=== PATIENT | male | born 1945 | race Caucasian/White ===

== ENCOUNTER 2017-01-12 04:34 | Inpatient (IN) | payer MEDICARE ==
[2017-01-12] VITALS (15 sets, daily range): BP systolic 107–153; BP diastolic 56–83; PULSE 55–95; RESP 12–22; O2SAT 92–100
[~2017-01-12] VITALS: Ht 177.8 cm; Wt 80.0 kg
[~2017-01-12 04:34] MED LIST: ACET325T51 PO; ALEN70TA2 PO; ASCO500C6 PO; ATOR20TA PO; CHOL10008 PO; CYAN500 PO; FERR325T39 PO; FOLI0.4T2 PO; MULT1CAP33 PO; PRD1T PO; WARF10TA4 PO
[2017-01-12 05:04] LABS: BASOPHILS % (AUTO) 0.2 % (0-3); EOSINOPHILS % (AUTO) 0.7 % (0-5); Mean Corpuscular Hemoglobin 31.7 pg (27.0-35.0); Mean Corpuscular Volume 90.3 fL (81-100); NEUTROPHILS % (AUTO) 93.3 % (40-74); Platelet Count 122 bil/L (150-400)
--- NOTE | 2017-01-12 05:04 | ED.REPORT ---
HPI-Abd Pain M 40 and Over Date of Service Jan 12, 2017 ED Provider: Victoriano Troncoso MD Pt is a 71 year old male who presents to the ED with complaints of abdominal pain, nausea, vomiting and dizziness that started earlier today. He reports that he is currently anticoagulated on Warfarin for a mechanical valve. Pt reports that his recently had influenza, but she was treated for it and healing completely. He states that he is mainly concerned about his dizziness, weakness and his fever. Nursing Notes Stated Complaint: ABDOMINAL CRAMPS/FEVER Chief Complaint: General Complaint Nursing Notes Reviewed: Yes Allergies: Coded Allergies: sulfamethoxazole (Verified Allergy, Mild, Rash, 10/05/13) trimethoprim (Verified Allergy, Mild, Rash, 10/05/13) Scheduled Alendronate Sodium (Fosamax) 70 Mg Tablet 70 MG PO WEEKLY Atorvastatin (Lipitor) 20 Mg Tablet 20 MG PO HS Cholecalciferol (Vitamin D3) (Vitamin D3) 1,000 Unit Tab.chew 2,000 UNIT PO BID Cyanocobalamin (Vitamin B12) 500 Mcg Tablet 1,000 MCG PO DAILY Ferrous Sulfate (Iron) 325 Mg Tablet 324 MG PO BID Multivitamin (Multivitamins) 1 Each Capsule 1 EACH PO DAILY PredniSONE (PredniSONE) 1 Mg Tab 2 MG PO DAILY Warfarin Sodium (Warfarin Sodium) 10 Mg Tablet 12.5 MG PO DAILY 12.5 MG ON SAT AND SATURDAY Warfarin Sodium (Warfarin Sodium) 10 Mg Tablet 10 MG PO DAILY ON SAT, , , SAT, SUN Scheduled PRN Acetaminophen (Acetaminophen) 325 Mg Tablet 1,000 MG PO QID PRN PRN For Pain Ascorbic Acid (Vitamin C) 500 Mg Capsule.er 500 MG PO BID PRN PRN supplement Folic Acid (Folic Acid) 0.4 Mg Tablet 0.4 MG PO DAILY PRN PRN SUPPLEMENT General Time Seen by MD: 04:55 Chief Complaint Abdominal pain Hx Obtained From: Patient Arrived By: Walk-in Sudden in Onset?: Yes Onset Occurred: 5 - 8 hours ago Symptom Duration: Since onset Location: : Diffuse Quality: Painful Severity: Current: Mild Severity: Maximum: Mild Similar Sx Previous: Yes Past Medical History Past Medical History 1. Sclerosing mesenteritis diagnosed 2009. 2. 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 3. 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 4. 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 5. Degenerative disk disease. 6. Atrial fibrillation status post ablation 2008. 7. TIA in 2007. 8. Vestibular ocular reflex disorder. 9. Minor coronary artery disease by catheterization in 2007. 10. History of anemia. 11. Raynaud's. Past Surgical History PAST SURGICAL HISTORY: 1. [place] Rupert aortic valve replacement, 2007. 2. Subtotal gastrectomy with Fe-en-Y gastrojejunostomy, 2010. 3. Cardiac ablation 2008. 4. Lumbar micro laminectomy 1999. 5. Vasectomy. 6. Laparoscopy. Reports: Tonsillectomy Smoking History Unknown if Ever Smoker Social History Alcohol Use: Denies alcohol use Other Social History: Good social support, Ambulatory Status Independent Review of Systems Constitutional: Reports: Fever, Malaise, Weakness - generalized, Denies: Chills Respiratory: Denies: Non-productive cough, Shortness of breath, Wheezing Cardiovascular: Denies: Chest pain GI: Reports: Abdominal pain, Nausea, Vomiting, Denies: Constipation, Diarrhea Male: Denies Dysuria, Denies Flank pain, Denies Urinary frequency, Denies Urinary urgency Musculoskeletal: Denies: Back pain, Extremity pain Complete sys rev & neg: except as marked. Physical Exam Initial Vital Signs Vital Signs (First) Date Time Temp Pulse Resp B/P Pulse Ox O2 Delivery O2 Flow Rate FiO2 01/12/17 04:45 40.0 95 17 150/61 98 Room Air Initial VS: Reviewed, Vital signs abnormal Head / Eyes: Atraumatic, Normocephalic, PERRL ENT: Mucous membranes moist, Conjunctiva normal, No scleral icterus Neck: Supple, Non-tender, Full range of motion Skin: Warm, Dry, No cyanosis Neurologic: Alert, Oriented, Nonfocal General/Constitutional: Awake, Alert Generalized weakness Respiratory / Chest: Atraumatic, Breath sounds NL, No respiratory distress Cardiovascular: Regular rhythm, Heart sounds NL, No gallop, No murmurs Artificial valve heard Abdomen: Atraumatic, Soft, Non-tender, No guarding, No rebound Back: Atraumatic, Inspection NL Interpretation & Diagnostics Lab Results Interpretation Result Diagram: 01/12/1744901/12/17449 Test 01/12/17 04:50 White Blood Count 6.1th/mm3 (3.8-10.1) Red Blood Count 4.13mil/mm3 (4.40-5.80) Hemoglobin 13.1g/dL (13.8-17.2) Hematocrit 37.3% (41.0-50.0) Mean Corpuscular Volume 90.3fL (81-100) Mean Corpuscular Hemoglobin 31.7pg (27.0-35.0) Mean Corpuscular Hemoglobin Concent 35.1% (32.0-37.0) Red Cell Distribution Width 13.1% (12.3-15.4) Platelet Count 122bil/L (150-400) Neutrophils (%) (Auto) 93.3% (40-74) Lymphocytes (%) (Auto) 4.6% (14-46) Monocytes (%) (Auto) 1.0% (4-12) Eosinophils (%) (Auto) 0.7% (0-5) Basophils (%) (Auto) 0.2% (0-3) Prothrombin Time 25.7sec (8.1-12.5) Prothromb Time International Ratio 2.36ratio Sodium Level 133mEq/L (134-144) Potassium Level 4.1mEq/L (3.5-5.2) Chloride Level 96mEq/L (97-108) Carbon Dioxide Level 24mmol/L (18-29) Blood Urea Nitrogen 14mg/dL (8-27) Creatinine 0.67mg/dL (0.76-1.27) Estimat Glomerular Filtration Rate 124mL/min (>59) Glucose Level 127mg/dL (60-99) Lactic Acid Level 3.3mmol/L (0.4-2.0) Calcium Level 8.6mg/dL (8.5-10.1) Magnesium Level 1.6mg/dL (1.6-2.6) Total Bilirubin 1.8mg/dL (0.0-1.2) Aspartate Amino Transf (AST/SGOT) 330U/L (0-50) Alanine Aminotransferase (ALT/SGPT) 224U/L (0-44) Alkaline Phosphatase 100U/L (25-160) Troponin T 0.010ug/L (0.0-0.011) Pro-B-Type Natriuretic Peptide 370.0pg/mL (0-376) Total Protein 6.3g/dL (6.4-8.4) Albumin 4.2g/dL (3.4-5.0) ECG Interpretation ECG Interpretation: SR - 91 Probable left atrial enlargement LAFB Time: 04:53 Interpreted by: ED physician Re-Eval/Medical Decision Med Decision/Clinical Course 71-year-old male with symptoms concerning for sepsis, source uncertain by history. Workup was initiated and his care will be turned over at change of shift to Dr. Lim. Source of Hx: Old records Counseled Regarding: Diagnosis, Lab results, Need for follow-up, Need for admission Discharge & Departure Primary Impression: Fever Fever type: unspecified Qualified Code: R50.9 - Fever, unspecified Disposition: ADMITTED TO HOSPITAL Vital Signs - All Vital Signs Date Time Temp Pulse Resp B/P Pulse Ox O2 Delivery O2 Flow Rate FiO2 01/12/17 04:45 40.0 95 17 150/61 98 Room Air )( All Prior VS Reviewed: Yes Condition: Stable Referrals: Darell Hendrickson MD (PCP) Maximinoiberinn Attestation Portions of this note were transcribed by Rose Goodrich. I, Dr. Troncoso personally performed the history, physical exam and medical decision-making; I reviewed and confirmed the accuracy of the information in the transcribed note. Signed by: Nora Berry, 01/11/2017 [Time] copies to: Darell Hendrickson MD, Howard L MD Jan 12, 2017 05:04 ESPERANZA GOODRICH Jan 12, 2017 05:10
[2017-01-12] MEDS ORDERED: 0.9% Sodium Chloride 1,000 ML IV ONE ×2 (05:10→06:30)
[2017-01-12 05:22] LABS: INR 2.36 ratio
[2017-01-12 05:32] LABS: TROPONIN T 0.01 ug/L (0.0-0.011)
[2017-01-12 05:44] LABS: Magnesium 1.6 mg/dL (1.6-2.6)
[2017-01-12] MEDS ORDERED: Ondansetron 2 mg/mL 2 mL Inj IVPUSH PRN ×2 (06:30→11:05)
[2017-01-12] MEDS ORDERED: predniSONE 1 mg Tablet PO ONE (07:45)
[2017-01-12 07:47] LABS: APPEARANCE,URINE CLEAR (CLEAR,HAZY); COLOR,URINE YELLOW (YELLOW); OCCULT BLOOD,URINE TRACE (NEGATIVE); PH,URINE 7.5 (5.0-8.0); UROBILINOGEN,URINE NORMAL (NORMAL)
--- NOTE | 2017-01-12 08:56 | DRSVH ---
PROCEDURE: X-RAY CHEST ONE VIEW, PORTABLE ([id number]) INDICATIONS: fever TECHNIQUE: One view of the chest was acquired. COMPARISON: [facility], CR, XR CHEST 1VW (PORTABLE), 11/11/2015, 22:30. [facility], CR, CHEST 2VW, 10/28/2014, 9:54. FINDINGS: Surgical changes and devices: Sternotomy wires, probable prior heart valve replacement. Lungs and pleura: No pleural effusions or pneumothorax. Lungs are abnormal with mild chronic inters titial prominence perhaps reflecting prior smoking. Mediastinum: Mediastinal contours appear normal. Heart size is normal. Bones and chest wall: No suspicious bony lesions. Overlying soft tissues appear unremarkable. IMPRESSION: No pneumonia found, stable mild interstitial prominence perhaps reflecting prior smoking history. Sternotomy wires, probable prior heart valve replacement. Source of current fever is not f ound. Dictated by: Harjeet Villanueva M.D. on 01/12/2017 at 8:54 Approved by: Harjeet Villanueva M.D. on 01/12/2017 at 8:55
[2017-01-12] MEDS: Vancomycin Dose per Pharmacist XX SCH (11:05)
[2017-01-12] MEDS ORDERED: Polyethylene Glycol (PEG) 17 Gm Powder PO PRN (11:05)
[2017-01-12] MEDS ORDERED: Alum-Mag Hydrox-Simeth 30 mL Suspension PO PRN (11:05)
[2017-01-12] MEDS ORDERED: Piperacillin-Tazo 3.375 Gm Inj 3.375 GM in Dextrose 5% Minibag Plus 50 ML IV SCH (11:05)
--- NOTE | 2017-01-12 11:21 | NUR ---
Admit Pt admitted from ED to [facility] rm 3004, report received from Annika Hurtado RN. Pt A/O x3, pleasant able to ambulate independently with steady gait. Denies pain or discomfort, SOB or CP. Pt left floor for STAT CT ABD/Pelvis as this time.
--- NOTE | 2017-01-12 11:35 | PCM.CONPHA ---
Subjective History of Present Illness Patient is an 71 y.o. male receiving vancomycin for sepsis. Concurrent abx include: ZOSYN. WBC count is 6.1 and the patient is febrile. Patient is 73 kg, 70 inches tall with a SCr of 0.67 mg/dL-- estimated CrCl of 100 mL/min. Based on patient parameters vancomycin will be dosed at 1250mg q12 h with a target trough of 15-20 /mL. Trough will be drawn prior to the 4th dose on 01/13 @ 2200. Pharmacy will follow daily and adjust as appropriate. Thank you for the consult in the care of this patient. RTM PharmD Objective Vital Signs Date Time Temp Pulse Resp B/P Pulse Ox O2 Delivery O2 Flow Rate FiO2 01/12/17 10:53 74 01/12/17 10:30 36.4 75 18 130/70 98 Room Air 01/12/17 09:46 91 20 116/57 01/12/17 06:38 37.7 87 22 125/56 96 Room Air 01/12/17 04:45 40.0 95 17 150/61 98 Room Air Weight (Kilograms): 73.000 Height (Feet): 5 Height (Inches): 10.00 Test 01/12/17 04:50 01/12/17 06:58 01/12/17 11:14 White Blood Count 6.1th/mm3 (3.8-10.1) Red Blood Count 4.13mil/mm3 (4.40-5.80) Hemoglobin 13.1g/dL (13.8-17.2) Hematocrit 37.3% (41.0-50.0) Mean Corpuscular Volume 90.3fL (81-100) Mean Corpuscular Hemoglobin 31.7pg (27.0-35.0) Mean Corpuscular Hemoglobin Concent 35.1% (32.0-37.0) Red Cell Distribution Width 13.1% (12.3-15.4) Platelet Count 122bil/L (150-400) Neutrophils (%) (Auto) 93.3% (40-74) Lymphocytes (%) (Auto) 4.6% (14-46) Monocytes (%) (Auto) 1.0% (4-12) Eosinophils (%) (Auto) 0.7% (0-5) Basophils (%) (Auto) 0.2% (0-3) Prothrombin Time 25.7sec (8.1-12.5) Prothromb Time International Ratio 2.36ratio Sodium Level 133mEq/L (134-144) Potassium Level 4.1mEq/L (3.5-5.2) Chloride Level 96mEq/L (97-108) Carbon Dioxide Level 24mmol/L (18-29) Blood Urea Nitrogen 14mg/dL (8-27) Creatinine 0.67mg/dL (0.76-1.27) Estimat Glomerular Filtration Rate 124mL/min (>59) Glucose Level 127mg/dL (60-99) Lactic Acid Level 3.3mmol/L (0.4-2.0) Calcium Level 8.6mg/dL (8.5-10.1) Magnesium Level 1.6mg/dL (1.6-2.6) Total Bilirubin 1.8mg/dL (0.0-1.2) Aspartate Amino Transf (AST/SGOT) 330U/L (0-50) Alanine Aminotransferase (ALT/SGPT) 224U/L (0-44) Alkaline Phosphatase 100U/L (25-160) Troponin T 0.010ug/L (0.0-0.011) Pro-B-Type Natriuretic Peptide 370.0pg/mL (0-376) Total Protein 6.3g/dL (6.4-8.4) Albumin 4.2g/dL (3.4-5.0) Urine Color Yellow (YELLOW) Urine Appearance Clear (CLEAR,HAZY) Urine pH 7.5 (5.0-8.0) Urine Specific [place] 1.012 (1.003-1.035) Urine Protein Negativemg/dL (NEG,TRACE) Urine Glucose (UA) Negativemg/dL (NEGATIVE) Urine Ketones Negativemg/dL (NEGATIVE) Urine Occult Blood Trace (NEGATIVE) Urine Nitrite Negative (NEGATIVE) Urine Bilirubin Negative (NEGATIVE) Urine Urobilinogen Normalmg/dL (NORMAL) Urine Leukocyte Esterase Negative (NEGATIVE) Urine RBC 3-10/hpf (0-2) Urine WBC 0-5/hpf (0-5) Urine Epithelial Cells Few/hpf (NONE-MOD) Urine Crystals None seen (NONE SEEN) Urine Bacteria None/hpf (NONE-FEW) Urine Hyaline Casts None/lpf (NONE) Urine Granular Casts None seen (NONE SEEN) Urine Waxy Casts None seen (NONE SEEN) Urine Red Blood Cell Casts None seen (NONE SEEN) Urine White Blood Cell Casts None seen (NONE SEEN) Urine Mucus None seen (None Seen) Urine Trichomonas None seen (NONE SEEN) Urine Yeast None (NONE SEEN) Urinalysis Comment None Urine Culture Reflexed Not indicated Ziyad Saunders Jan 12, 2017 11:35
--- NOTE | 2017-01-12 11:57 | DRSVH ---
PROCEDURE: CT ABDOMEN AND PELVIS WITH CONTRAST ([id number]) INDICATIONS: Abdominal Pain, Fever TECHNIQUE: After the administration of oral and intravenous contrast, 5 mm thick sections acquired from the diap hragms to the symphysis. 5 mm thick coronal and sagittal reformats were performed. For radiation do se reduction, the following was used: automated exposure control, adjustment of mA and/or kV accordi ng to patient size. COMPARISON: None. FINDINGS: Image quality: Excellent. ABDOMEN: Lung bases: Lung bases are clear. Heart size is normal. Solid organs: Liver and spleen are normal in size and enhancement. Gallbladder appears abnormal wit h wall thickening best seen at the fundus measuring up to 1.7 cm. A component of this may be free fl uid immediately adjacent, and ultrasound is scheduled. Biliary system is non-dilated. Pancreas enha nces normally. No adrenal nodules. Kidneys are normal in size and enhancement, without hydronephros is. Peritoneum and bowel: Stomach, small bowel, and colon loops are normal in caliber and wall thickness . No free fluid or air. There is colonic obstipation bilaterally. This extends into the pelvis. Nodes and vessels: No retroperitoneal or mesenteric adenopathy. Aorta and inferior vena cava are no rmal in caliber. Miscellaneous: No ventral hernias. PELVIS: Genitourinary: Bladder wall thickness is normal. Miscellaneous: No inguinal hernias or adenopathy. Bones: No suspicious bony lesions. No vertebral body compression fractures. IMPRESSION: Abnormal gallbladder wall thickening, measuring up to 1.7 cm In thickness at the anterior gallbladder fundus area, but please note that ultrasound provides more a ccurate assessment and can discriminate between gallbladder wall thickening and superimposed pericoli cystic free fluid. Please correlate for signs and symptoms of acute cholecystitis. Gallbladder ultr asound is scheduled. Dictated by: Harjeet Villanueva M.D. on 01/12/2017 at 11:54 Approved by: Harjeet Villanueva M.D. on 01/12/2017 at 11:56
[2017-01-12] MEDS: 0.9% Sodium Chloride 1,000 ML IV SCH ×2 (12:08→21:20)
[2017-01-12] MEDS ORDERED: Phytonadione (Adult) 5 MG in Dextrose 5%-Pha MIX 50 ML IV ONE (12:40)
--- NOTE | 2017-01-12 12:40 | PCM.HPMED ---
Subjective Date of Service Jan 12, 2017 Primary Provider: Admitting Physician: Zak Arango MD Primary Care Physician: Darell Hendrickson MD Attending Physician: Zak Arango MD Admit Status: From the Emergency Department, Admit to [place] Team Chief Complaint: Fever, Chills, Abdominal Pain History of Present Illness: Patient is a 71 year old male with a past medical history of Coronary Artery Disease, Aortic Stenosis, Sclerosing Mesenteritis, Atrial Fibrillation, TIA, and hx of Gastric Perforation. He presents to the ER at [facility] complaining of fever, chills, and abdominal pain. Pt states his symptoms began at approximately 3:30 AM this morning, when he woke up with significant chills and fever. He states he has also been having some abdominal pain as well as nausea and vomiting last night. Pt states the pain seems to be generalized. He denies any radiation of this pain. At present, pt states the pain has subsided. In the ER pt was found to have a significantly elevated temperature. A source for his fever was not found in the ER and he was admitted for further evaluation to hospital. No other complaints or concerns at this time. Review of Systems: All systems reviewed and are negative except for what has already been mentioned in the HPI. Allergies Coded Allergies: sulfamethoxazole (Verified Allergy, Mild, Rash, 10/05/13) trimethoprim (Verified Allergy, Mild, Rash, 10/05/13) Home Medications Pts home medications have not yet been verified. PMH 1. Coronary Artery Disease 2. Atrial Fibrillation status post ablation 3. TIA 4. Aortic Stenosis status post AVR 5. Sclerosing Mesenteritis 6. Hx of Gastric Perforation Surgical History 1. Subtotal Gastrectomy 2. Cardiac Ablation 3. Aortic Valve Replacement Family History Mother - of Breast Cancer at age 73 Father - of MS at age 72 Social History Hx Alcohol Use: No Hx Substance Use: No Hx Tobacco Use: No Smoking Status: Never Smoker Living Arrangement: with Family Exam Vital Signs Vital Sign - Last Date Time Temp Pulse Resp B/P Pulse Ox O2 Delivery O2 Flow Rate FiO2 01/12/17 10:53 74 01/12/17 10:30 36.4 18 130/70 98 Room Air Intake and Output 01/11/17 01/11/17 01/12/17 Cumulative From/Thru 15:00 23:00 07:00 01/12/17 05:19 - 01/12/17 05:19 Intake Total 1000 ml 1000 ml Balance 1000 ml 1000 ml Intake IV Total 1000 ml 1000 ml Exam GENERAL: NAD, Pt laying in bed comfortably HEENT: AT/NC, PERRLA, EOMI, Mucus Membranes are moist CARDIAC: RRR; No M/R/G PULM: CTAB; No wheezes or rhonchi bilaterally ABD: Soft, Mildly TTP over RUQ, Nondistended, Positive bowel sounds in all quadrants, No Hepatosplenomegaly appreciated EXT: No C/C/E; No calf tenderness bilaterally SKIN: Warm, Dry, [place], and Intact NEURO: Alert and oriented x3; Following all commands PSYCH: Normal mood and affect Lab and Diagnostics Result Diagram: 01/12/1744901/12/17449 Assessment & Plan Patient is a 71 year old male who is admitted to hospital for an acute fever and abdominal pain suspicious for Acute Cholecystitis. 1. Fever - Etiology unclear - Blood cultures x2 - Start empiric antibiotics with IV Vancomycin and IV Zosyn now - Check Procalcitonin now - Check CBC with diff and BMP in AM - CXR is clear, UA is within normal range, and rapid flu test was negative 2. Abdominal Pain, RUQ - I suspect pt may have Acute Cholecystitis - Will order a CT of the abdomen and pelvis with contrast now given pts acute fever and abdominal pain, as this was not done in ER for some unknown reason - I will also order a RUQ US now - Morphine 1-2 mg IV q 4 hours PRN pain 3. Transaminitis, Acute - Will order an acute hepatitis panel now - Possibly related to #2 - Will consult GI now for assistance 4. Hx of Mechanical Aortic Valve Replacement - Pt is presently on chronic anticoagulation with Warfarin and his INR is therapeutic - Stop Warfarin now - Will give 2 units FFP now to reverse anticoagulation as pt may need surgery given suspicion of cholecystitis - Will give 5 mg IV Vitamin K now also 5. Sclerosing Mesenteritis - Pt is presently on low dose chronic Prednisone, will continue this while pt is in hospital 6. Hx of CAD - Hold home statin therapy for now, and restart this medication in AM 7. Disposition - Anticipate discharge to home within the next 2 days - Pt admitted under inpatient status as his expected length of stay in hospital is greater than 2 midnights DNR, per discussion with patient at bedside and review of his POLST form Zak Arango MD Jan 12, 2017 12:40
[2017-01-12] MEDS: Vancomycin Inj 1,250 MG in 0.9% Sodium Chloride 250 ML IV SCH ×2 (12:53→22:43)
--- NOTE | 2017-01-12 13:03 | CONS ---
[address] [address] CONSULTATION REPORT PATIENT: JIMY BAUMANN : 1945 MR#: [id number] ADMIT: 01/12/2017 JOB ID: [id number] DATE OF SERVICE: 01/12/2017 It was a pleasure seeing the patient at [facility] GI service for abdominal pain. This is a 71-year-old gentleman with multiple medical issues and surgeries including sclerosing mesenteritis on prednisone. He was on azathioprine as well. He had a history of gastric perforation with peritonitis status post subtotal colectomy, aortic stenosis status post aortic valve replacement on Coumadin. History of AFib status post ablation. TIAs and underlying coronary disease who also has a [place]pert's aortic valve. He comes in with 2-day history of abdominal pain, nausea, vomiting. The abdominal pain came and gone; however, he started having the shakes and he started having the chills. Because of this, he thought he was going to pass out. He was constantly shaking. He also noted some fevers as well. He came to the ED and when he got to the ED, they noticed that on exam, he was soft, nontender. No rebound. However, they noticed that his transaminases were elevated. Therefore they wanted the patient to be admitted for observation for possible flu. However, the primary care service saw the patient and thought he was septic, and did notice some tenderness. Based on the history they did a CT scan, which showed nondilated ducts but evidence of cholecystitis with pericholecystic fluid as well as a thickened gallbladder wall. He is currently having minimal pain. However, he still feels chills and is feeling better. His weakness is better. Dizziness is better. In terms of the rest of the review of systems, the denies any nausea, vomiting, no significant abdominal pain. No blood in the stools. Black stools. Diarrhea, constipation. No skin rash. PAST MEDICAL HISTORY: Sclerosing mesenteritis with history of immunosuppression who has been on azathioprine. However, only on prednisone at this point. Gastric perforation with peritonitis, status post subtotal gastrectomy, September 2011. Congenital aortic stenosis, status post [place] Rupert's valve replacement 2007. Degenerative joint disease. AFib status post ablation in 2008. TIA 2008. CAD. History of anemia. Raynaud, cardiac ablation, lumbar laminectomy, vasectomy, and history of laparoscopic, and tonsillectomy. Denies tobacco or alcohol. PHYSICAL EXAMINATION: Patient is alert, oriented, does appear comfortable. Temp 36.4, pulse 75, respiration 18, blood pressure 130/70. T-max is 40.0. Head and neck: No icterus. Lungs clear. Cardiovascular: Regular rate and rhythm. Normal S1, S2. Abdomen: Soft. Epigastric tenderness. Right upper quadrant tenderness. He actually has more significant epigastric tenderness. There is no guarding, rebound or firmness. Nondistended with slight decrease in bowel sounds. Extremities: No pitting edema of the ankles. Skin: Shows no jaundice. LABORATORY DATA: White count 6.1, hemoglobin 13.1, platelets 122,000. INR 2.36. Total bili 1.8, AST 330, ALT 224. Lactic acid 3.3, albumin 4.2. BUN is 14, creatinine 0.67. CT scan that was done just now showed abnormal gallbladder wall thickening up to 1.7 cm with superimposed pericholecystic fluid. IMPRESSION: This is a gentleman who is on prednisone, as well as history of azathioprine, who comes in with nausea, vomiting, abdominal pain, with chills and shakes. His temp was 40.0. The CT scan revealed that he has cholecystitis. His clinical picture is consistent with sepsis or an infection. He is on antibiotics. He is currently on Zosyn and vancomycin. He is not tachycardic. His fever broke. No ductal dilation noted. I suspect that he has underlying cholecystitis requiring surgery which explains his abdominal pain, nausea, vomiting, shakes, chills as well as temp of 40. I spoke with the primary care doctor who agreed to obtain surgical consult. We will sign off from GI. [facility]
--- NOTE | 2017-01-12 13:36 | CONS ---
[address] [address] CONSULTATION REPORT PATIENT: JIMY BAUMANN : 1945 MR#: [id number] ADMIT: 01/12/2017 JOB ID: [id number] DATE OF SERVICE: CHIEF COMPLAINT: Abnormal gallbladder on CT. HISTORY OF PRESENT ILLNESS: Patient is a 71-year-old male who presented to the hospital early this morning due to epigastric discomfort, shakes, and fever. The patient reports that he was fine yesterday. He went to bed feeling hungry. He had some peanut butter. This is follow by about an hour worth of epigastric cramping and shakes. The patient has had a history of gastrectomy so he is not able to vomit. The patient is also anticoagulated on Coumadin due to a mechanical valve. Workup in the emergency department early this morning included a CT scan, which showed some thickening of the gallbladder wall. I was consulted by the hospitalist service for evaluation. The patient states that he has a history of gravel in his gallbladder. The patient also has a slightly elevated total bilirubin of 1.8 with an AST of 330 and ALT of 224. Patient's INR early this morning was 2.36. Currently, patient is in his bed and denies major abdominal cramping or epigastric pain or right upper quadrant pain at this time. PAST MEDICAL HISTORY: History of laparoscopy, history of subtotal gastrectomy in 2010 at [facility], aortic valve replacement, DJD, history of atrial fibrillation, TIA in 2007, cardiac ablation in 2008, vasectomy and lumbar surgery in 1999. 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 MEDICATIONS AT HOME: Include Fosamax, vitamins, iron, prednisone, and Coumadin. ALLERGY: 1. SULFA. 2. TRIMETHOPRIM. SOCIAL HISTORY: The patient is . He has a son and a daughter. He lives in [place]. FAMILY HISTORY: Noncontributory to the current clinical situation. REVIEW OF SYSTEMS: Positive for the epigastric discomfort and shakes and fever. PHYSICAL EXAMINATION: The patient is currently in the hospital bed in no acute distress. His BMI is 23.1. His temperature is 36.4, although at 4:00 in the morning, he had a temperature of 40. Blood pressure 130/70, pulse is 75, respirations 18. Head is normocephalic, atraumatic. There is no scleral icterus. Neck is supple. Heart is in regular rate. Lungs are clear. Abdomen is nondistended. There is an upper midline incision from his previous gastrectomy. There is only mild discomfort with palpation in the epigastric location. There is no obvious right upper quadrant tenderness and the lower quadrants are completely soft and benign. Extremities show no clubbing, no cyanosis. Neurologically, patient is awake and alert and answers appropriately. LABORATORY EXAMINATION: This morning showed a white blood count of 6.1, hematocrit 37.3, platelet count is 122. Sodium is 133, potassium 4.1, total bilirubin 1.8. AST 330, ALT 224. His INR is 2.36. The CT scan report from early this morning shows abnormal gallbladder wall thickening with some pericholecystic fluid. ASSESSMENT: This is a 71-year-old male on Coumadin who had epigastric cramping and shakes and fever since last night. The patient has had a prior gastrectomy in 2010, with Fe-en-Y reconstruction. I will order a lipase at this time. An abdominal ultrasound is being performed currently. Depending on the findings of the ultrasound, I may or may not pursue a HIDA scan. If the patient does require surgical intervention, his INR should be reversed with vitamin K and FFP. The biliary anatomy was drawn on the chalkboard and explained to the patient and his friend in the room. I will follow up with the patient after the ultrasound examination. The patient is currently on IV antibiotics and should be continued on them. Addendum: pt was found to have positive blood cultures with gram neg rods. Therefore I recommend proceeding to cholecystectomy during this hospitalization. HOODD
--- NOTE | 2017-01-12 13:48 | DRSVH ---
PROCEDURE: US ABDOMEN, LIMITED ([id number]) INDICATIONS: Elevated Liver Enzymes; Fever TECHNIQUE: Real-time focused scanning was performed of the abdomen, with image documentation. COMPARISON: [facility], CT, CT ABD PELVIS W CON, 01/12/2017, 11:24. FINDINGS: Gallbladder wall is abnormally thickened measuring up to 5.4 mm. There is what appears to be a small amount of echogenic sludge in the dependent margin of the gallbladder lumen. The nearby c ommon duct is normal in caliber at 2 mm. IMPRESSION: Abnormal gallbladder wall thickening at 5.4 mm. Echogenic sludge within the gallbladder lumen. Dictated by: Harjeet Villanueva M.D. on 01/12/2017 at 13:46 Approved by: Harjeet Villanueva M.D. on 01/12/2017 at 13:47
[2017-01-12] MEDS ORDERED: Heparin Protocol Boluses IVPUSH PRN (15:20)
[2017-01-12] MEDS ORDERED: Heparin 25K Unit/500mL 0.45 NS 25,000 UNIT in IV Premix 1 EACH IV SCH (15:20)
[2017-01-12] MEDS ORDERED: Heparin Initial Bolus IVPUSH ONE (15:20)
--- NOTE | 2017-01-12 16:09 | NUR ---
took over care at 4pm
--- NOTE | 2017-01-12 16:30 | NUR ---
[facility] [place] signed
--- NOTE | 2017-01-12 16:34 | NUR ---
Vit K Med started, 50-60% infused when MD ordered to stop infusion. Received new order for Heparin bolus 5000 units and Heparin drip, paged for clarification on what heparin protocol from MD.
[2017-01-12] MEDS: Heparin 5,000 Unit/mL Inj SUBQ SCH (17:00)
[2017-01-12 17:36] LABS: INR 2.47 ratio
--- NOTE | 2017-01-12 18:24 | NUR ---
Temp/Chills Pt c/o of shaking, and not feeling very well, pt is febrile at 37.8. Received labs on blood cultures, 3 of 4 postitive for gram neg rods, paged at 1820. Addendum: 01/12/17 at 1852 by TAI ANGEL RN called back, aware of results and will contact surgeon. Addendum: 01/12/17 at 1924 by TAI ANGEL RN Received verbal order to infuse 2 units FFP STAT, NPO, as pt will have surgery in the morning.
[2017-01-12] MEDS ORDERED: Phytonadione (Adult) 2.5 MG in Dextrose 5%-Pha MIX 50 ML IV ONE (18:55)
[2017-01-12] MEDS: Piperacillin-Tazo 3.375 Gm Inj 3.375 GM in Dextrose 5% Minibag Plus 50 ML IV SCH (21:20)
[2017-01-12] MEDS ORDERED: 0.9% Sodium Chloride 250 ML ONE ×2 (21:22→22:22)
--- NOTE | 2017-01-12 22:00 | NUR ---
FFP and transfer from [facility] Report was received from [facility] and patient was brought to the [facility] by [facility] RN. FFP and NS were infusing at the time of transfer. The first unit of FFP completed infusing without complications and patients only complain is some LUQ ABD pain. Patient medicated with IV morphine and the patient reports feeling better. IV antibiotics started and completed without complication. Second unit of FFP started and completed without complication. Patient without signs of a transfusion reaction. Patient resting in bed without needs.
[2017-01-13] VITALS (17 sets, daily range): BP systolic 120–163; BP diastolic 63–82; PULSE 48–90; RESP 14–32; O2SAT 93–100
[2017-01-13] MEDS: Heparin 5,000 Unit/mL Inj SUBQ SCH ×3 (00:30→16:30)
[2017-01-13 03:12] LABS: BASOPHILS % (AUTO) 0.2 % (0-3); EOSINOPHILS % (AUTO) 0.8 % (0-5); MONOCYTES % (AUTO) 6.4 % (4-12); Mean Corpuscular Hemoglobin 31.3 pg (27.0-35.0); Mean Corpuscular Volume 96.7 fL (81-100); NEUTROPHILS % (AUTO) 89.2 % (40-74); Platelet Count 85 bil/L (150-400)
[2017-01-13 03:56] LABS: ERYTHROCYTE SEDIMENTATION RATE 9 mm/hr (0-30)
[2017-01-13] MEDS: 0.9% Sodium Chloride 1,000 ML IV SCH ×3 (05:12→20:33)
[2017-01-13] MEDS: Piperacillin-Tazo 3.375 Gm Inj 3.375 GM in Dextrose 5% Minibag Plus 50 ML IV SCH ×3 (05:13→22:32)
[2017-01-13] MEDS ORDERED: Neostigmine 1 mg/mL 5 mL Inj ONE (06:33)
[2017-01-13] MEDS ORDERED: fentaNYL-PF 50 mCg/mL 2 mL Inj ONE (06:33)
[2017-01-13] MEDS ORDERED: Propofol 10,000 mCg/mL 20 mL Inj ONE (06:33)
[2017-01-13] MEDS ORDERED: Dexamethasone 4 mg/mL Inj ONE (06:33)
[2017-01-13] MEDS ORDERED: Glycopyrrolate 0.2 mg/mL 5 mL Inj ONE (06:33)
[2017-01-13] MEDS ORDERED: Ondansetron 2 mg/mL 2 mL Inj ONE (06:33)
--- NOTE | 2017-01-13 07:11 | PCM.HPANE ---
Patient Data Surgeon Admitting Provider:Zak Arango MD Attending Provider:Zak Arango MD Primary Care Physician:Darell Hendrickson MD Other Provider: Reason for Visit Sepsis SEPSIS Ht/WT & BMI Height (Feet): 5 Height (Inches): 10.00 Weight (Kilograms): 72.800 Body Mass Index 23.04 Allergies Coded Allergies: sulfamethoxazole (Verified Allergy, Mild, Rash, 10/05/13) trimethoprim (Verified Allergy, Mild, Rash, 10/05/13) Past Anesthesia History Anesthesia History: Denies:: Anesthesia Reactions Diabetes History Hx Diabetes?: No MRSA MRSA: No Medications Reported Medications Warfarin Sodium 10 Mg Amvyfv69 Mg PO DAILY 30 Days Ref 0 ON MON, , , SAT, Sat11/12/15 Warfarin Sodium 10 Mg Xiaoju48.5 Mg PO DAILY 30 Days Ref 0 12.5 MG ON SAT AND Saturday11/12/15 Atorvastatin (Lipitor)20 Mg Jjzeqn04 Mg PO HS Ref 0 11/12/15 Alendronate Sodium (Fosamax)70 Mg Pttafl35 Mg PO WEEKLY 30 Days Ref 0 11/12/15 PredniSONE 1 Mg Tab2 Mg PO DAILY Ref 0 11/12/15 Multivitamin (Multivitamins)1 Each Capsule1 Each PO DAILY 11/12/15 Folic Acid 0.4 Mg Tablet0.4 Mg PO DAILY PRN SUPPLEMENT 11/12/15 Cyanocobalamin (Vitamin B12)500 Mcg Tablet1,000 Mcg PO DAILY 11/12/15 Cholecalciferol (Vitamin D3) (Vitamin D3)1,000 Unit Tab.chew2,000 Unit PO BID 11/12/15 Acetaminophen 325 Mg Tablet1,000 Mg PO QID PRN For Pain Ref 0 11/12/15 Ferrous Sulfate (Iron)325 Mg Cgbaqx086 Mg PO BID 11/12/15 Ascorbic Acid (Vitamin C)500 Mg Capsule.er500 Mg PO BID PRN supplement 11/12/15 History History of ENT Problems?: Yes HEENT History: Denies:: Cataracts Dysphagia Glaucoma Sinus Problem Other HEENT Pertinent History: Vestibular-ocular disorder, affects balance Hx of Heart Problems?: Yes Cardiovascular History: Positive for:: Cardiac Surgery Irregular Heartbeat (AFib) Denies:: Chest Pain Congestive Heart Failure Edema Heart Murmur Hypertension Pacemaker Thrombophlebitis Other Cardiac History: AVR 2007, ablation 2004 Hx of Respiratory Problem?: No Respiratory History: Positive for:: Chest Surgery (open heart) Pneumonia (Cannot remember date of hospital admin for PNA.) Denies:: Asthma COPD Dyspnea Emphysema Hemoptysis Tuberculosis Hx Neurologic Problems?: Yes Neurological History: Positive for:: Dizziness Headaches Denies:: Alzheimer's Disease CVA Dementia Parkinson's Disease Seizures Other Neurological Pertinent: Neck and lower back surgeries. L4-5 herniated disk removal. Vestibulo-ocluar reflex disorder, causes chronic dizziness and vertigo. TIA. Hx of GI Problems?: Yes Gastrointestinal History: Positive for:: Diverticulitis Gastrointestinal Bleeding Denies:: Gastroesphageal Reflux Heartburn Hepatitis Hiatal Hernia Rectal Bleeding Other GI Pertinent History: "stomach ulcer, mesenteric sclerosis, perforated stomach, stomach removed." Hx of Problems?: Yes Genitourinary History: Denies:: HX of Hemodialysis Kidney Stones Urinary Tract Infection HX of Peritoneal Dialysis: No Male Hx: Denies:: Prostate Problems Scrotal Mass Testicular Surgery Hx Musculoskeletal Problems?: Yes Musculoskeletal History: Positive for:: Back Injury (pre-back surgery) Denies:: Joint Replacement Musculoskeletal Trauma Hx of Psycho/Social Problems?: No Psycho Social History: Denies:: Anxiety Bipolar Disorder Hx Depression Suicide Attempt Hx Surgeries?: Yes (laminectomy, open heart with mechanical valve, gastrectomy, ) Hx Any Other Health Problems?: No Other History: Positive for:: Hospitalization Denies:: Cancer Endocrine Disease Thyroid Disease History Blood Transfusions: Positive for:: Accept Blood Products? Blood Transfusions Denies:: Blood Transfuse Reaction Hx Diabetes: No Hx Alcohol Use: NoHx Substance Use: No Smoking Status: Never Smoker Have You Smoked inLast 12 mo: No Stop/Bang Treated for Sleep Apnea?: No Do You Have a CPAP Machine?: No S-Snoring: Do You Snore Loudly: No T-Tired: feel tired, fatigued: No O-Obsered: Observed not breath: No P-Blood Pressure: treated: No B- Body Mass Index > 35 kg/m2: No A- Age over 50: Yes N- Neck Large Circumference: No G- Gender Male: Yes OLINDA Total Score: 1 OLINDA Risk Assessment: Low Risk, <3 Yes Risk Assessment Category Category 1A: Patient has history of documented sleep apnea, and HAS NOT received any narcotic, sedative or anesthesia administration during this stay. Category 1B: Patient has history of documented sleep apnea, and HAS received any narcotic , sedative or anesthesia administration during this stay Category 2: Patient has SUSPECTED Obstructive Sleep Apnea, and HAS received any narcotic , sedative or anesthesia administration during this stay. Category 3: Patient has SUSPECTED Obstructive Sleep Apnea and HAS NOT received narcotic, sedative or anesthesia administration during this stay. Category 4: Outpatient in Procedural Areas with known sleep apnea or who screen positive for High Risk via the STOP/BANG questionnaire. Exam Exam Vital Signs Vital Signs Date Time Temp Pulse Resp B/P Pulse Ox O2 Delivery O2 Flow Rate FiO2 01/13/17 06:56 64 01/13/17 04:48 36.6 74 17 141/69 93 Room Air 01/12/17 23:56 36.8 78 16 116/60 92 Room Air General Appearance: Alert, Oriented X3, Cooperative, No Acute Distress HEENT/AIRWAY: MP 2 Lungs: Clear to Auscultation, Normal Air Movement Heart: Exam Unremarkable, Regular Rate/Rhythm, No Murmurs/Rubs/Gallops Meds/Labs/Diagnostics Admission Meds Current Medications Prednisone (Deltasone) 2 mg ONCE ONCE PO Last administered on 01/12/17 08:28 ; Start 01/12/17 at 07:45; Stop 01/12/17 at 07:46; Status DC Warfarin Sodium 10 mg 10 mg ONCE ONCE PO Last administered on 01/12/17 08:28 ; Start 01/12/17 at 08:20; Stop 01/12/17 at 08:21; Status DC Sodium Chloride 1,000 ml @ 125 mls/hr Q8H IV Last administered on 01/13/17 05 :12; Start 01/12/17 at 11:03 Piperacillin Sod/ Tazobactam Sod 3.375 gm/Dextrose/ Water 50 ml @ 12.5 mls/hr Q8 IV Last administered on 01/12/17 14:08; Start 01/12/17 at 11:05; Stop 01/12 at 17:24; Status DC Vancomycin HCl 1250 mg/Sodium Chloride 250 ml @ 166.667 mls/hr Q12H IV Last administered on 01/12/17 22:43; Start 01/12/17 at 11:00 Phytonadione/ Dextrose/Water (Vitamin K (Adult)/D5W Pharmacy To Mix) 50.5 ml @ 101 mls/hr ONCE ONCE IV Last administered on 01/12/17 16:11; Start 01/12/17 at 12:40; Stop 01/12/17 at 13:09; Status DC Heparin Sodium (Porcine) 5000 unit 5,000 unit ONCE ONCE IVPUSH Last administered on 01/12/17 17:00; Start 01/12/17 at 15:20; Stop 01/12/17 at 15:21 ; Status DC Piperacillin Sod/ Tazobactam Sod 3.375 gm/Dextrose/ Water 50 ml @ 12.5 mls/hr Q8H IV Last administered on 01/13/17 05:13; Start 01/12/17 at 22:00 Phytonadione 2.5 mg/Dextrose/Water 50.25 ml @ 100.5 mls/ hr ONCE ONCE IV Last administered on 01/12/17 20:09; Start 01/12/17 at 18:55; Stop 01/12/17 at 19:24; Status DC Sodium Chloride 250 ml @ STK-MED ONCE .ROUTE Last administered on 01/12/17 21:45; Start 01/12/17 at 21:22; Stop 01/12/17 at 21:25; Status DC Sodium Chloride (Normal Saline) 250 ml @ ud STK-MED ONCE .ROUTE Last administered on 01/12/17 22:42; Start 01/12/17 at 22:22; Stop 01/12/17 at 22:24 ; Status DC Labs Test 01/12/17 04:50 01/12/17 06:58 01/12/17 13:35 01/12/17 16:40 Magnesium Level 1.6mg/dL (1.6-2.6) Troponin T 0.010ug/L (0.0-0.011) Pro-B-Type Natriuretic Peptide 370.0pg/mL (0-376) Lipase 28U/L (13-60) Urine Color Yellow (YELLOW) Urine Appearance Clear (CLEAR,HAZY) Urine pH 7.5 (5.0-8.0) Urine Specific [place] 1.012 (1.003-1.035) Urine Protein Negativemg/dL (NEG,TRACE) Urine Glucose (UA) Negativemg/dL (NEGATIVE) Urine Ketones Negativemg/dL (NEGATIVE) Urine Occult Blood Trace (NEGATIVE) Urine Nitrite Negative (NEGATIVE) Urine Bilirubin Negative (NEGATIVE) Urine Urobilinogen Normalmg/dL (NORMAL) Urine Leukocyte Esterase Negative (NEGATIVE) Urine RBC 3-10/hpf (0-2) Urine WBC 0-5/hpf (0-5) Urine Epithelial Cells Few/hpf (NONE-MOD) Urine Crystals None seen (NONE SEEN) Urine Bacteria None/hpf (NONE-FEW) Urine Hyaline Casts None/lpf (NONE) Urine Granular Casts None seen (NONE SEEN) Urine Waxy Casts None seen (NONE SEEN) Urine Red Blood Cell Casts None seen (NONE SEEN) Urine White Blood Cell Casts None seen (NONE SEEN) Urine Mucus None seen (None Seen) Urine Trichomonas None seen (NONE SEEN) Urine Yeast None (NONE SEEN) Urinalysis Comment None Urine Culture Reflexed Not indicated Prothrombin Time 26.9sec (8.1-12.5) Prothromb Time International Ratio 2.47ratio Activated Partial Thromboplast Time 33.4sec (22.8-33.0) Test 01/13/17 00:55 01/13/17 02:51 Lactic Acid Level 1.8mmol/L (0.4-2.0) White Blood Count 12.0th/mm3 (3.8-10.1) Red Blood Count 3.68mil/mm3 (4.40-5.80) Hemoglobin 11.5g/dL (13.8-17.2) Hematocrit 35.6% (41.0-50.0) Mean Corpuscular Volume 96.7fL (81-100) Mean Corpuscular Hemoglobin 31.3pg (27.0-35.0) Mean Corpuscular Hemoglobin Concent 32.3% (32.0-37.0) Red Cell Distribution Width 13.2% (12.3-15.4) Platelet Count 85bil/L (150-400) Neutrophils (%) (Auto) 89.2% (40-74) Lymphocytes (%) (Auto) 3.0% (14-46) Monocytes (%) (Auto) 6.4% (4-12) Eosinophils (%) (Auto) 0.8% (0-5) Basophils (%) (Auto) 0.2% (0-3) Erythrocyte Sedimentation Rate 9mm/hr (0-30) Sodium Level 138mEq/L (134-144) Potassium Level 4.6mEq/L (3.5-5.2) Chloride Level 103mEq/L (97-108) Carbon Dioxide Level 20mmol/L (18-29) Blood Urea Nitrogen 14mg/dL (8-27) Creatinine 0.68mg/dL (0.76-1.27) Estimat Glomerular Filtration Rate 121mL/min (>59) Glucose Level 74mg/dL (60-99) Calcium Level 7.8mg/dL (8.5-10.1) Total Bilirubin 4.5mg/dL (0.0-1.2) Aspartate Amino Transf (AST/SGOT) 269U/L (0-50) Alanine Aminotransferase (ALT/SGPT) 343U/L (0-44) Alkaline Phosphatase 79U/L (25-160) C-Reactive Protein 7.3mg/dL (0.0-0.5) Total Protein 5.0g/dL (6.4-8.4) Albumin 3.4g/dL (3.4-5.0) Procalcitonin 8.20ng/mL (0.00-0.08) Plan Impression Patient chart reviewed, patient interviewed and anesthestic plan with risks, benefits, and alternatives discussed, and informed consent obtained. NPO Status: water at 0730 ASA Physical Status: ASA3 Severe Disease Anesthetic Plan: GA Bene/Risks/Altern/Consents: Yes HP Complete Prior to Induction: Yes Rober Dillon MD Jan 13, 2017 07:11
[2017-01-13 07:39] LABS: INR 1.59 ratio
[2017-01-13] MEDS ORDERED: Lactated Ringer's 1,000 ML IV ONE ×3 (07:49)
[2017-01-13 08:07] LABS: Hepatitis A Antibody IgM Negative (Negative); Hepatitis B Core Antibody IgM Negative (Negative)
[2017-01-13] MEDS ORDERED: Bupivacaine-MPF 0.5% W/EPI 30 mL Inj INFILTRATE ONE (08:21)
[2017-01-13] MEDS ORDERED: Iopamidol-300 50 mL Inj IV ONE (08:30)
[2017-01-13] MEDS: predniSONE 1 mg Tablet PO SCH (08:30)
[2017-01-13] MEDS: Vancomycin Dose per Pharmacist XX SCH (08:43)
--- NOTE | 2017-01-13 09:06 | NUR ---
OR transfer The pt transferred to the OR at 0800 for a choley. The pt was A&O x3 at the time of transfer.
[2017-01-13] MEDS ORDERED: HYDROmorphone 0.5 mg/0.5 mL iSecure Syringe IVPUSH PRN (09:15)
[2017-01-13] MEDS ORDERED: HYDROcodone-APAP 5-325 mg Tablet PO PRN (09:15)
--- NOTE | 2017-01-13 09:22 | DRSVH ---
CORRECTED PROCEDURE NAME AND ACCESSION/PLACER NUMBER ON 01/16/17 PROCEDURE: XR CHOLANGIOGRAM OPERATIVE INDICATIONS: MARIALUISA TECHNIQUE: Fluoroscopic spot films were acquired by the gastroenterology service during ERCP procedu re. COMPARISON: None. FINDINGS: 4 C-arm films are presented these show cannulation of the cystic duct and contrast flowing into a nondistended common hepatic central biliary radicles and the common bile duct with spillage in to the duodenum. IMPRESSION: Normal intraoperative cholangiogram study. Dictated by: Sukhwinder Chávez M.D. on 01/13/2017 at 9:19 Approved by: Sukhwinder Chávez M.D. on 01/13/2017 at 9:20
[2017-01-13] MEDS ORDERED: Lactated Ringer's 500 ML IV PRN (09:43)
[2017-01-13] MEDS ORDERED: Lactated Ringer's 1,000 ML IV SCH (09:43)
[2017-01-13] MEDS ORDERED: EPHEDrine Sulfate 50 mg/mL Inj IVPUSH PRN (09:45)
[2017-01-13] MEDS ORDERED: Ondansetron 2 mg/mL 2 mL Inj IVPUSH PRN (09:45)
[2017-01-13] MEDS ORDERED: MetoCLOpramide 5 mg/mL 2 mL Inj IVPUSH PRN (09:45)
[2017-01-13] MEDS ORDERED: Phenylephrine 10,000 mCg/mL Inj IVPUSH PRN (09:45)
[2017-01-13] MEDS ORDERED: Labetalol 5 mg/mL 4 mL Inj IV PRN (09:45)
[2017-01-13] MEDS ORDERED: Dexamethasone 4 mg/mL Inj IVPUSH PRN (09:45)
[2017-01-13] MEDS ORDERED: fentaNYL-PF 50 mCg/mL 2 mL Inj IVPUSH PRN (09:45)
[2017-01-13] MEDS ORDERED: Atropine 0.4 mg/mL Inj IVPUSH PRN (09:45)
[2017-01-13] MEDS ORDERED: HYDROmorphone 1 mg/mL Inj IVPUSH PRN (09:45)
[2017-01-13] MEDS ORDERED: hydrALAZINE 20 mg/mL Inj IVPUSH PRN (09:45)
--- NOTE | 2017-01-13 10:07 | NUR ---
Transfer back to unit Received report from PACU - pt ready to transfer back to the unit. Pt's vitals are WNL with 4 lap sites.
--- NOTE | 2017-01-13 10:22 | PCM.ANEP1 ---
Post Anesthesia Phase 1 PACU Phase 1 Assessment Vital Signs Vital Signs Date Time Temp Pulse Resp B/P Pulse Ox O2 Delivery O2 Flow Rate FiO2 01/13/17 10:11 36.4 58 14 139/64 98 Nasal Cannula 2 01/13/17 09:55 59 17 145/68 100 Simple Mask 6 01/13/17 09:47 60 32 142/64 100 Simple Mask 6 01/13/17 09:39 63 18 127/64 96 Simple Mask 6 01/13/17 09:34 64 21 122/67 97 Simple Mask 8 01/13/17 09:28 36.1 74 21 120/67 98 Simple Mask 8 01/13/17 07:50 70 01/13/17 06:56 64 01/13/17 04:48 36.6 74 17 141/69 93 Room Air Anesthetic Administered: GA Level of Alertness: Sleepy, easy to arouse Pain: No Pain Scale Score: 0 Airway Device: Oralpharangeal Airway Lungs: Clear to Auscultation, Normal Air Movement Rober Dillon MD Jan 13, 2017 10:22
--- NOTE | 2017-01-13 10:29 | PCM.ANEP2 ---
Post Anesthesia Evaluation ASA/CMS Post Anesthesia VS in Patient's Normal Range?: Yes Resp Stable; Airway Patent?: Yes CV Function & Hydration Stable: Yes Mental Status Recovered?: Yes Pain control Satisfactory?: Yes N/V Control Satisfactory?: Yes Rober Dillon MD Jan 13, 2017 10:29
--- NOTE | 2017-01-13 10:42 | PCM.PNMED ---
Subjective Date of Service Jan 13, 2017 Subjective Pt underwent laparoscopic cholecystectomy this morning by General Surgery. Pt tolerated procedure well. His pain is currently well controlled. Pt denies any nausea, vomiting, fever and chills overnight. RN reports overnight pt remained stable without any acute events to report. Exam Vital Signs Vital Sign - Last Date Time Temp Pulse Resp B/P Pulse Ox O2 Delivery O2 Flow Rate FiO2 01/13/17 10:11 36.4 58 14 139/64 98 Nasal Cannula 2 Intake and Output 01/12/17 01/12/17 01/13/17 Cumulative From/Thru 15:00 23:00 07:00 01/12/17 05:19 - 01/13/17 05:20 Intake Total 1000 ml 2877 ml 1780 ml 6657 ml Output Total 2150 ml 300 ml 2450 ml Balance 1000 ml 727 ml 1480 ml 4207 ml Intake Oral 1109 ml 100 ml 1209 ml IV Total 1000 ml 1244 ml 1680 ml 4924 ml FFP 504 ml 504 ml Tube Irrigant 20 ml 20 ml Output Urine Total 2150 ml 300 ml 2450 ml # Voids 2 2 # Bowel Movements 2 2 Exam GENERAL: NAD, Pt laying in bed comfortably HEENT: AT/NC; PERRLA, EOMI, MM moist CARDIAC: RRR, No M/R/G PULM: CTAB ABD: Soft, Appropriately tender to palpation status post surgery, ND, Positive BS; No hepatosplenomegaly appreciated EXT: No C/C/E; No calve tenderness bilaterally SKIN: Warm, dry, pink, and intact NEURO: Alert and oriented x3; Following all commands; 5/5 strength in bilateral upper and lower extremities, Normal speech; CN II-XII are grossly intact PSYCH: Normal mood and affect IVs and Medications Medications Reviewed: Medications were reviewed in detail Lab and Diagnostics Result Diagram: 01/13/1725001/13/17250 Assessment & Plan Patient is a 71 year old male who is admitted to hospital for an acute fever and abdominal pain suspicious for Acute Cholecystitis. 1. Sepsis - Secondary to E. Coli from infected gallbladder - Pt is now status post cholecystectomy - Continue IV Zosyn - Discontinue IV Vancomycin now - 3/4 blood cultures positive for E. Coli - Repeat blood cultures in AM - Repeat Procalcitonin in AM - Repeat CBC with diff in AM - Continue IV Normal Saline at current rate - Continue telemetry monitoring 2. Acute Cholecystitis - Pt is status post laparoscopic cholecystectomy today - Control pain with IV Morphine PRN - General Surgery following - See #2 3. Transaminitis, Acute - Secondary to #2 likely - Liver enzymes should trend downward now that his gallbladder is removed - Recheck liver enzymes in AM - Although pt is septic, I do not feel there is an element of shock liver here as he was never hypotensive 4. Hx of Mechanical Aortic Valve Replacement - Pts anticoagulation was reversed for surgery this morning - Pt was given 2 units of FFP and 5 mg of IV Vitamin K - Pharmacy to restart Warfarin and managing dosing - Recheck INR in AM 5. Sclerosing Mesenteritis - Pt is presently on low dose chronic Prednisone, will continue this while pt is in hospital 6. Hx of CAD - Continue pts home statin therapy, as I do not feel this is contributing to his acute transaminitis (see #3) 7. Disposition - Anticipate discharge to home within the next 2-3 days VTE Mechanical Devices: Intermittant Pneumatic CD Zak Arango MD Jan 13, 2017 10:42
[2017-01-13] MEDS ORDERED: Ascorbic Acid 500 mg Tablet PO PRN (13:10)
[2017-01-13] MEDS: Vancomycin Inj 1,250 MG in 0.9% Sodium Chloride 250 ML IV SCH (13:58)
--- NOTE | 2017-01-13 14:09 | NUR ---
Transfer to [facility] Pt recd on unit at 1320 via stretcher. Pt c/o abd pain 2/10, at site of incisions. Pt denies pain at ribcage. IVF/abx running. Pt denies having questions. Sitting up right in bed with a clear lunch. Bed in low position, 3 rails up, call light in reach. Will continue with frequent monitoring.
--- NOTE | 2017-01-13 14:44 | OP ---
[address] [address] OPERATIVE REPORT PATIENT: JIMY BAUMANN : 1945 MR#: [id number] ADMIT: 01/12/2017 JOB ID: [id number] DATE OF SURGERY: 01/13/2017 SURGEON: Praveen Hines MD. CAMPUS CHAPLAIN: Jag Lira PA-C. The assistance from a surgical PA was crucial in completion of the case, given patient's prior gastrectomy and Fe-en-Y reconstruction. ANESTHESIA: General. PREOPERATIVE DIAGNOSIS(ES): Cholecystitis. POSTOPERATIVE DIAGNOSIS(ES): Cholecystitis. PRINCIPAL PROCEDURE: Laparoscopic cholecystectomy with intraoperative cholangiogram. INDICATION FOR PROCEDURE: The patient is a 71-year-old male with positive blood cultures and a CT scan and ultrasound findings consistent with cholecystitis. PRINCIPAL FINDING: Successful laparoscopic cholecystectomy. The intraoperative angiogram appears to be normal without any obstruction. PROCEDURE COURSE: The patient was brought to the operating table and was provided with general anesthesia. The patient's abdomen was prepped and draped in the usual sterile fashion. The patient had been receiving IV antibiotics and he was provided with SCDs. A time-out was performed. The patient's abdomen was prepped and draped in the usual sterile fashion. The patient has had a prior upper midline incision for his gastrectomy. Local anesthetic was injected into the infraumbilical location, and a 5 mm stab incision was made. A Veress needle was used to establish pneumoperitoneum. Next, a 5 mm trocar was then placed and the laparoscope was introduced. Upon visualization, there did appear to be some adhesions to the undersurface of the anterior abdominal wall directly in our path. A 12 mm trocar was then placed slightly to the right of midline at the epigastric location, away from these adhesions. Two additional 5 mm trocars were then placed in the right lateral abdomen. Using scissors, we had to take down some of these anterior abdominal wall adhesions to help with our exposure to the gallbladder. The gallbladder was covered by fat and omentum and adhesions, and these were all taken down using a combination of blunt dissection and cautery. Once we are directly on the gallbladder, we dissect out the Calot triangle. We isolated the cystic duct circumferentially and the cystic artery to its right. A clip was then placed on the gallbladder/cystic duct junction, and a partial transection of the duct was made. Intraoperative cholangiogram demonstrated normal proximal and distal biliary anatomy without any filling defects, and the contrast appeared to be draining into the duodenum. Next, the cholangiocatheter was then removed from the patient. Two additional clips were then placed on the proximal duct and then the duct was then transected. The cystic artery was similarly clipped and divided. Next, the gallbladder was then detached from the gallbladder fossa using electrocautery. The specimen was then placed into the EndoCatch bag and removed from the patient. Irrigation in the right upper quadrant was carried out and suctioned. Inspection of the clips showed that they were intact, and there were no signs of arterial bleeding or bile leak at the end the case. Next, we turned our attention to the subxiphoid port. The fascial defect there was then reapproximated using 0 Vicryl suture using the EndoClose device. Next, CO2 was allowed to escape and all the trocars were then removed from the patient. Skin edges were then reapproximated using absorbable sutures. Steri-Strips and sterile dressing were then placed over each wound. By the end of procedure, needle counts and sponge counts were correct. The patient was then extubated and taken to the recovery room in stable satisfactory condition.
[2017-01-13] MEDS ORDERED: Artificial Tears 15 mL Ophthalmic Solution BOTH_EYES PRN (16:40)
--- NOTE | 2017-01-13 16:50 | NUR ---
HR Call recd from tele notifying of change. pt had 11 beats of rate in 70-90s with LEFT BBB. notified. pt asymptomatic. Will continue to monitor.
--- NOTE | 2017-01-13 17:26 | NUR ---
Blood Culture + Call recd from micro lab, 3rd set of Anaerobic bl cx + with GM - MASSIMO. Note sent to . Pt currently receiving IV abx.
[2017-01-13] MEDS ORDERED: Vancomycin Serum Trough XX ONE (22:00)
[2017-01-14] VITALS (7 sets, daily range): BP systolic 158–174; BP diastolic 74–84; PULSE 49–62; RESP 16; O2SAT 94–98
[2017-01-14] MEDS: Heparin 5,000 Unit/mL Inj SUBQ SCH ×3 (00:30→17:05)
--- NOTE | 2017-01-14 01:17 | NUR ---
Void Patient c/o being unable to void. patient stood at bedside and voided 100mls. patient sat on BSC and voided 125mls. MD notified. new order to straight cath if post void greater than 400mls. post void residual 250mls at this time. patient has no urge to void at this time. will continue to monitor and encourage patient to void.
--- NOTE | 2017-01-14 01:21 | NUR ---
HR Patient HR maintaining in the 40's patient non-symptomatic states "that is normal for me sometimes." apical HR 59. MD notified no new orders. continue to monitor. boiler control technician informed me that patient was having an occasional 2nd degree block with 2:1. MD notified no new orders continue to monitor.
[2017-01-14] MEDS: 0.9% Sodium Chloride 1,000 ML IV SCH ×2 (01:48→12:47)
[2017-01-14 06:14] LABS: BASOPHILS % (AUTO) 0 % (0-3); EOSINOPHILS % (AUTO) 0 % (0-5); MONOCYTES % (AUTO) 3.5 % (4-12); Mean Corpuscular Hemoglobin 31.5 pg (27.0-35.0); Mean Corpuscular Volume 95.5 fL (81-100); Platelet Count 85 bil/L (150-400)
[2017-01-14] MEDS: Piperacillin-Tazo 3.375 Gm Inj 3.375 GM in Dextrose 5% Minibag Plus 50 ML IV SCH ×3 (06:43→21:27)
[2017-01-14 07:11] LABS: INR 1.27 ratio
--- NOTE | 2017-01-14 08:29 | PCM.PHAPRO ---
Progress Date of Service: Jan 14, 2017 Fever, Chills, Abdominal Pain INR 1.27, hgb/hct 12/36.4, plts 85. Pt continues on warfarin for mechanical aortic valve plus afib. Goal INR = 2.5- 3.5. INR subtherapeutic today likely from doses of vit K rec'd 01/12. Will continue home warfarin regimen and give 10mg PO tonight. Of note, sc heparin not being given. Will inquire about this in rounds. INRs are ordered. Pharmacy will continue to follow this pt's warfarin therapy. Rosangela Freeman S PharmD Jan 14, 2017 08:29
[2017-01-14] MEDS: Multivit-Miner-Folic Acid-Iron Tablet PO SCH (08:33)
[2017-01-14] MEDS: predniSONE 1 mg Tablet PO SCH (08:33)
--- NOTE | 2017-01-14 08:38 | NUR ---
swelling pt states that his face and hands are swelling.
--- NOTE | 2017-01-14 09:17 | PCM.PNSURG ---
Subjective Date of Service: Jan 14, 2017 Visit Information: Reason for Visit Sepsis Surgery/Surgery Date Post-Op Day # Date of Admission: Jan 12, 2017 at 09:42 Hospital Day # Postop General: No Shortness of Breath, No Chest Pain Gastrointestinal: Tolerating Oral Feedings, Passing Flatus Objective Objective Abdomen: is slightly firm and tender in RUQ and surrounding laparoscopic incision sites, incisions appears clean dry and intact without erythema or discharge. BS+ 4Q Vital Sign- Last 8 Hours Date Time Temp Pulse Resp B/P Pulse Ox O2 Delivery O2 Flow Rate FiO2 01/14/17 05:14 36.8 57 16 165/78 94 Room Air Intake and Output- Last 8 Hour 01/14/17 Cumulative From/Thru 07:00 01/12/17 05:19 - 01/14/17 06:50 Intake Total 500 ml 9714 ml Output Total 675 ml 3225 ml Balance -175 ml 6489 ml Intake Oral 500 ml 1949 ml IV Total 7241 ml FFP 504 ml Tube Irrigant 20 ml Output Urine Total 675 ml 3225 ml # Voids 2 # Bowel Movements 2 General: Alert, Oriented X3, Cooperative Neck: Supple, Full Range of Motion Lungs: Clear to Auscultation, Clear to Percussion Heart: Exam Unremarkable, Regular Rate/Rhythm Extremities: Distal Pulses Palpable, Warm Neuro: Cranial Nerves 2-12 nl, Grossly Neurologically Intact Result Diagram: 01/14/17 0550 01/14/17 0550 Assessment & Plan Impression Patient with lingering bacteremia and leukocytosis with continued improving abdominal tenderness to palpation. He is well experienced in advancing his diet having undergone multiple GI surgeries. From a surgical standpoint he appears to have tolerated the procedure well and is recovering appropriately. We will defer to primary team for timing of discharge. Problems: Plan -Continue to advance diet as tolerated -transition to PO analgesia as able -Encourage ambulation as tolerated -We will continue to follow and be available should any concerns arise. -OK to resume anti-coagulation for mechanical heart valve Resuscitation Status: Limited Interventions (No compressions) Limited Interventions: Intubation w Mech Vent Attending Statement: I personally examined the pt and I agree with Dr. Maher's assessment and plan. Mt Maher DO Jan 14, 2017 09:17 Praveen Hines MD Feb 10, 2017 17:46
--- NOTE | 2017-01-14 11:02 | NUR ---
Social Work-initial assessment: Data & Assessment: See initial assessment. Pt is a 71 y/o female who was admitted on 01/12/16 for sepsis per H&P. Pt's insurance is [employer] and PCP is Darell Hendrickson MD. EMR Reviewed. There is no re-admission risk; patient's score is 2. SW met with patient to discuss discharge planning, SW role explained and initial assessment complete. Pt is alert and oriented x3. Pt resides at home with in a single level home with two steps to enter where pt remains independent with basic ADLs. Pt uses a cane at baseline. Pt has no HH or SNF history. Pt has completed DPOA/ advanced directive and was placed on paper chart; Carlie jacobson, RUBEN. Patient does not have any VA or LTC benefits. Currently the patient does not have any discharge needs. SW provided phone number and plan on white board in room. SW will continue to follow. Plan:Pt to likely discharge home with no needs. Patient will transport home via POV. SW will continue to follow. Tomy Denny LMSW, BRYAN Addendum: 01/16/17 at 1118 by TOMY PORTER Amended: Links added.
--- NOTE | 2017-01-14 14:42 | PCM.PNMED ---
Subjective Date of Service Jan 14, 2017 Subjective Patient is a 71 year old male who is admitted to hospital for an acute fever and abdominal pain suspicious for Acute Cholecystitis. This is day 3. Overnight there were no acute events. He says that he feels back to normal and is ready to start eating again. He does feel a bit more fluid in his abdomen than usual. Exam Vital Signs Vital Sign - Last Date Time Temp Pulse Resp B/P Pulse Ox O2 Delivery O2 Flow Rate FiO2 01/14/17 10:35 49 01/14/17 10:15 36.6 16 159/74 98 Room Air 01/13/17 10:11 2 Intake and Output 01/13/17 01/13/17 01/14/17 Cumulative From/Thru 15:00 23:00 07:00 01/12/17 05:19 - 01/14/17 06:50 Intake Total 925 ml 1632 ml 500 ml 9714 ml Output Total 100 ml 675 ml 3225 ml Balance 925 ml 1532 ml -175 ml 6489 ml Intake Oral 240 ml 500 ml 1949 ml IV Total 925 ml 1392 ml 7241 ml FFP 504 ml Tube Irrigant 20 ml Output Urine Total 100 ml 675 ml 3225 ml # Voids 2 # Bowel Movements 2 Exam GENERAL: NAD, Pt sitting in chair comfortably HEENT: PERRL, EOMI, MM moist CARDIAC: RRR, No M/R/G PULM: CTAB ABD: Soft, Appropriately tender to palpation status post surgery, ND, Positive BS; No hepatosplenomegaly appreciated EXT: calf tenderness bilaterally, pitting edema B/L feet SKIN: Warm, dry, pink, and intact. Surgical wounds are dressed and the dressing is clean, dry and intact NEURO: Alert and oriented x3; Following all commands; Normal speech; CN II-XII are grossly intact PSYCH: Normal mood and affect IVs and Medications Medications Reviewed: Medications were reviewed in detail Lab and Diagnostics Result Diagram: 01/14/17 0550 01/14/17 0550 Microbiology Microbiology 01/14/17 Blood Culture, Received Pending 01/12/17 Blood culture - E. coli 3/4 bottles Influenza negative 01/12/17 Adenovirus DNA (PCR) - Final, Complete Not Detected 01/12/17 Coronavirus 229E PCR - Final, Complete Not Detected 01/12/17 Coronavirus HKU1 PCR - Final, Complete Not Detected 01/12/17 Coronavirus NL63 PCR - Final, Complete Not Detected 01/12/17 Coronavirus OC43 PCR - Final, Complete Not Detected 01/12/17 Influenza Type A (PCR) - Final, Complete Not Detected 01/12/17 Influenza Type B (PCR) - Final, Complete Not Detected 01/12/17 Human Metapneumovirus (PCR) (CHRISTINE) - Final, Complete Not Detected 01/12/17 Rhinovirus (PCR)(CHRISTINE) - Final, Complete Not Detected 01/12/17 Parainfluenza Virus Type 1 (PCR) - Final, Complete Not Detected 01/12/17 Parainfluenza Virus Type 2 (PCR) - Final, Complete Not Detected 01/12/17 Parainfluenza Virus Type 3 (PCR) - Final, Complete Not Detected 01/12/17 Parainfluenza Virus Type 4 (NAAT) - Final, Complete Not Detected 01/12/17 Respiratory Syncytial Virus (PCR)VT - Final, Complete Not Detected 01/12/17 Chlamydia pneumoniae (PCR) - Final, Complete Not Detected 01/12/17 Mycoplasma pneumoniae DNA Detection - Final, Complete Assessment & Plan Patient is a 71 year old male who is admitted to hospital for an acute fever and abdominal pain suspicious for Acute Cholecystitis. 1. Sepsis, present on admission. resolved - Secondary to E. Coli bacteremia from infected gallbladder - Pt is now status post cholecystectomy - Continue IV Zosyn - Discontinued IV Vancomycin - 3/4 blood cultures positive for E. Coli again - Repeated blood cultures today - Repeat Procalcitonin is reduced by 1/2 today (4.42 from 8.2) - Repeat CBC with diff in AM - Continue IV Normal Saline at 75 ml/hr - Continue telemetry monitoring 2. Acute Cholecystitis, present on admission. Resolved - Pt is status post laparoscopic cholecystectomy - Control pain with IV Morphine PRN - General Surgery has now signed off - See #2 3. Transaminitis, Acute, present on admission, resolving - Secondary to #2 likely - Liver enzymes should trended downward with cholecystectomy - Recheck liver enzymes in AM - Although pt is septic, I do not feel there is an element of shock liver here as he was never hypotensive 4. Hx of Mechanical Aortic Valve Replacement, present on admission, stable - Pts anticoagulation was reversed for surgery - Pharmacy managing Warfarin - Recheck INR in AM. Today was 1.27 5. Sclerosing Mesenteritis, present on admission, presume stable - Pt is presently on low dose chronic Prednisone, will continue this while pt is in hospital 6. Hx of CAD, present on admission, presume stable - Continue pts home statin therapy, as I do not feel this is contributing to his acute transaminitis (see #3) 7. Disposition - Anticipate discharge to home within the next 2-3 days The patient was seen and examined together with Dr. العلي on 01/14/17 and I agree with the history, exam and plan as outlined in the note above. VTE Prophylaxis: Sub-Q Heparin (Unfractionated) VTE Mechanical Devices: Venous Foot Pump Resuscitation Status: Limited Interventions (No compressions) Limited Interventions: Intubation w Mech Vent Kalie العلي DO Jan 14, 2017 14:42 Loida Chapman DO Jan 14, 2017 18:09
[2017-01-15] VITALS (7 sets, daily range): BP systolic 132–158; BP diastolic 63–73; PULSE 48–62; RESP 18–20; O2SAT 93–100
[2017-01-15] MEDS: Heparin 5,000 Unit/mL Inj SUBQ SCH ×3 (00:55→18:40)
--- NOTE | 2017-01-15 03:48 | NUR ---
Activity/ Voiding Patient states that he is ambulating well to BR with SBA. He states that pain is at a tolerable level. Incision sites are CDI. Patient voided 500ml during first part of shift. Does not feel the need for a bladder scan at this time. VSS. Call light within reach. Care continues.
[2017-01-15] MEDS: Piperacillin-Tazo 3.375 Gm Inj 3.375 GM in Dextrose 5% Minibag Plus 50 ML IV SCH ×3 (05:49→22:46)
[2017-01-15 06:33] LABS: BASOPHILS % (AUTO) 0 % (0-3); EOSINOPHILS % (AUTO) 0.1 % (0-5); MONOCYTES % (AUTO) 4.5 % (4-12); Mean Corpuscular Volume 94.5 fL (81-100); Platelet Count 90 bil/L (150-400)
[2017-01-15 06:36] LABS: INR 1.76 ratio
[2017-01-15] MEDS: predniSONE 1 mg Tablet PO SCH (10:05)
[2017-01-15] MEDS: Multivit-Miner-Folic Acid-Iron Tablet PO SCH (10:05)
--- NOTE | 2017-01-15 11:48 | PCM.PNSURG ---
Subjective Date of Service: Jan 15, 2017 Visit Information: Reason for Visit Sepsis Surgery/Surgery Date Post-Op Day # 2 Date of Admission: Jan 12, 2017 at 09:42 Hospital Day # Subjective: Eating solid food/cardiac diet with no nausea or vomiting, appetite is good. Bowel movement this morning. Ambulating in the hallway without assistance. Not taking pain medication as he is not experiencing any pain. Denies chest pain or shortness of breath. Postop General: No Complaints, No Shortness of Breath, No Chest Pain Gastrointestinal: Good Appetite, Tolerating Oral Feedings, No N/V, Normal Bowel Movement Pain Management: No or Minimal Pain Postop Activity: Ambulating Independently Objective Vital Sign- Last 8 Hours Date Time Temp Pulse Resp B/P Pulse Ox O2 Delivery O2 Flow Rate FiO2 01/15/17 10:28 55 01/15/17 09:51 36.4 49 20 132/66 99 Room Air 01/15/17 04:57 36.4 57 18 148/63 93 Room Air Intake and Output- Last 8 Hour 01/15/17 Cumulative From/Thru 07:00 01/12/17 05:19 - 01/15/17 06:33 Intake Total 810 ml 94515 ml Output Total 1325 ml 5325 ml Balance -515 ml 6069 ml Intake Oral 500 ml 3319 ml IV Total 310 ml 7551 ml FFP 504 ml Tube Irrigant 20 ml Output Urine Total 1325 ml 5325 ml # Voids 2 # Bowel Movements 1 5 General: Alert, Cooperative, No Acute Distress, Anicteric Lungs: Clear to Auscultation Heart: Regular Rate/Rhythm Abdomen: Soft, Non-tender, Non-distended SURGICAL WOUND : Wound General Appearence: Steri Strips, Sutures, Intact, Well Approximated, No Erythema, No Discharge Extremities: Thigh&Calf Soft/Nontender Neuro: Normal Speech Catheters: None Result Diagram: 01/15/17 0545 01/15/17 0545 Assessment & Plan Impression Primary diagnoses: 1. Cholecystitis. POD #2, full return of bowel function, and icteric, satisfactory recovery following cholecystectomy. Other diagnoses: 1. Coronary Artery Disease 2. Atrial Fibrillation status post ablation 3. TIA 4. Aortic Stenosis status post AVR 5. Sclerosing Mesenteritis, on prednisone therapy. 6. Hx of Gastric Perforation 7. DJD Problems: Plan Disposition as per the hospitalist service. Follow-up in the office with Jag Lira PA-C in 2 weeks. Pain Management: [place] Intermittent IV analgesic VTE Prophylaxis: Sub-Q Heparin (Unfractionated) Resuscitation Status: Limited Interventions (No compressions) Limited Interventions: Intubation w Mech Vent Jag Lira PA-C Jan 15, 2017 11:48
--- NOTE | 2017-01-15 19:10 | PCM.PNMED ---
Subjective Date of Service Jan 15, 2017 Subjective Patient is a 71 year old male who is admitted to hospital for an acute fever and abdominal pain suspicious for Acute Cholecystitis. This morning patient states that he is feeling pretty good. He says that he has less urinary retention. He wants to advance his diet today. His is here, just returned from [place]. Denies chills. Abdomen is mildly tender from the surgery. Exam Vital Signs Vital Sign - Last Date Time Temp Pulse Resp B/P Pulse Ox O2 Delivery O2 Flow Rate FiO2 01/15/17 14:43 36.6 52 20 136/68 100 Room Air 01/13/17 10:11 2 Intake and Output 01/14/17 01/14/17 01/15/17 Cumulative From/Thru 14:59 22:59 06:59 01/12/17 05:19 - 01/15/17 06:33 Intake Total 870 ml 810 ml 94173 ml Output Total 775 ml 1325 ml 5325 ml Balance 95 ml -515 ml 6069 ml Intake Oral 870 ml 500 ml 3319 ml IV Total 310 ml 7551 ml FFP 504 ml Tube Irrigant 20 ml Output Urine Total 775 ml 1325 ml 5325 ml # Voids 2 # Bowel Movements 2 1 5 Exam GENERAL: NAD, Pt sitting in chair comfortably HEENT: PERRL, EOMI, MM moist CARDIAC: RRR, No R/G, +systolic murmur PULM: CTAB ABD: Soft, Appropriately tender to palpation status post surgery, ND, Positive BS EXT: pitting edema B/L feet SKIN: Surgical wounds are dressed and the dressing is clean, dry and intact NEURO: Alert and oriented x3; Following all commands; Normal speech; CN II-XII are grossly intact PSYCH: Normal mood and affect IVs and Medications Medications Reviewed: Medications were reviewed in detail Lab and Diagnostics Result Diagram: 01/15/17 0545 01/15/1745 Microbiology Microbiology 01/14/17 Blood Culture, Received, no growth after 24 hours 01/12/17 Blood culture - E. coli 3/4 bottles Influenza negative 01/12/17 Adenovirus DNA (PCR) - Final, Complete Not Detected 01/12/17 Coronavirus 229E PCR - Final, Complete Not Detected 01/12/17 Coronavirus HKU1 PCR - Final, Complete Not Detected 01/12/17 Coronavirus NL63 PCR - Final, Complete Not Detected 01/12/17 Coronavirus OC43 PCR - Final, Complete Not Detected 01/12/17 Influenza Type A (PCR) - Final, Complete Not Detected 01/12/17 Influenza Type B (PCR) - Final, Complete Not Detected 01/12/17 Human Metapneumovirus (PCR) (CHRISTINE) - Final, Complete Not Detected 01/12/17 Rhinovirus (PCR)(CHRISTINE) - Final, Complete Not Detected 01/12/17 Parainfluenza Virus Type 1 (PCR) - Final, Complete Not Detected 01/12/17 Parainfluenza Virus Type 2 (PCR) - Final, Complete Not Detected 01/12/17 Parainfluenza Virus Type 3 (PCR) - Final, Complete Not Detected 01/12/17 Parainfluenza Virus Type 4 (NAAT) - Final, Complete Not Detected 01/12/17 Respiratory Syncytial Virus (PCR)NC - Final, Complete Not Detected 01/12/17 Chlamydia pneumoniae (PCR) - Final, Complete Not Detected 01/12/17 Mycoplasma pneumoniae DNA Detection - Final, Complete X-Rays, CTs and MRIs 01/13/17 X-RAY [facility]CTS ([id number]) INDICATIONS: MARIALUISA TECHNIQUE: Fluoroscopic spot films were acquired by the gastroenterology service during ERCP procedure. COMPARISON: None. FINDINGS: 4 C-arm films are presented these show cannulation of the cystic duct and contrast flowing into a nondistended common hepatic central biliary radicles and the common bile duct with spillage into the duodenum. IMPRESSION: Normal intraoperative cholangiogram study. Dictated by: Sukhwinder Chávez M.D. on 01/13/2017 at 9:19 Approved by: Sukhwinder Chávez M.D. on 01/13/2017 at 9:20 01/12/17 US ABDOMEN, LIMITED ([id number]) INDICATIONS: Elevated Liver Enzymes; Fever TECHNIQUE: Real-time focused scanning was performed of the abdomen, with image documentation. COMPARISON: [facility], CT, CT ABD PELVIS W CON, 01/12/2017, 11:24. FINDINGS: Gallbladder wall is abnormally thickened measuring up to 5.4 mm. There is what appears to be a small amount of echogenic sludge in the dependent margin of the gallbladder lumen. The nearby common duct is normal in caliber at 2 mm. IMPRESSION: Abnormal gallbladder wall thickening at 5.4 mm. Echogenic sludge within the gallbladder lumen. Dictated by: Harjeet Villanueva M.D. on 01/12/2017 at 13:46 Approved by: Harjeet Villanueva M.D. on 01/12/2017 at 13:47 01/12/17 CT ABDOMEN AND PELVIS WITH CONTRAST ([id number]) INDICATIONS: Abdominal Pain, Fever TECHNIQUE: After the administration of oral and intravenous contrast, 5 mm thick sections acquired from the diaphragms to the symphysis. 5 mm thick coronal and sagittal reformats were performed. For radiation dose reduction, the following was used : automated exposure control, adjustment of mA and/or kV according to patient size. COMPARISON: None. FINDINGS: Image quality: Excellent. ABDOMEN: Lung bases: Lung bases are clear. Heart size is normal. Solid organs: Liver and spleen are normal in size and enhancement. Gallbladder appears abnormal with wall thickening best seen at the fundus measuring up to 1.7 cm. A component of this may be free fluid immediately adjacent, and ultrasound is scheduled. Biliary system is non-dilated. Pancreas enhances normally. No adrenal nodules. Kidneys are normal in size and enhancement, without hydronephrosis. Peritoneum and bowel: Stomach, small bowel, and colon loops are normal in caliber and wall thickness. No free fluid or air. There is colonic obstipation bilaterally. This extends into the pelvis. Nodes and vessels: No retroperitoneal or mesenteric adenopathy. Aorta and inferior vena cava are normal in caliber. Miscellaneous: No ventral hernias. PELVIS: Genitourinary: Bladder wall thickness is normal. Miscellaneous: No inguinal hernias or adenopathy. Bones: No suspicious bony lesions. No vertebral body compression fractures. IMPRESSION: Abnormal gallbladder wall thickening, measuring up to 1.7 cm In thickness at the anterior gallbladder fundus area, but please note that ultrasound provides more accurate assessment and can discriminate between gallbladder wall thickening and superimposed pericolicystic free fluid. Please correlate for signs and symptoms of acute cholecystitis. Gallbladder ultrasound is scheduled. Dictated by: Harjeet Villanueva M.D. on 01/12/2017 at 11:54 Approved by: Harjeet Villanueva M.D. on 01/12/2017 at 11:56 . Assessment & Plan Patient is a 71 year old male who is admitted to hospital for an acute fever and abdominal pain suspicious for Acute Cholecystitis. 1. Sepsis, present on admission. resolved - Secondary to E. Coli bacteremia from infected gallbladder - Pt is now status post cholecystectomy - Continue IV Zosyn - Discontinued IV Vancomycin - 3/4 blood cultures positive for E. Coli again - Repeated blood cultures pending - Repeat Procalcitonin is reduced by 1/2 today - Repeat CBC with diff in AM - Continue telemetry monitoring 2. Acute Cholecystitis, present on admission. Resolved - Pt is status post laparoscopic cholecystectomy - Control pain with IV Morphine PRN - General Surgery has now signed off 3. Transaminitis, Acute, present on admission, resolving - Secondary to #2 likely - trending downward with cholecystectomy 4. Hx of Mechanical Aortic Valve Replacement, present on admission, stable - Pts anticoagulation was reversed for surgery - Pharmacy managing Warfarin 5. Sclerosing Mesenteritis, present on admission, presume stable - Pt is presently on low dose chronic Prednisone, will continue this while pt is in hospital 6. Hx of CAD, present on admission, presume stable - Continue pts home statin therapy, as I do not feel this is contributing to his acute transaminitis (see #3) 7. Disposition - Anticipate discharge to home possibly VTE Prophylaxis: Sub-Q Heparin (Unfractionated), Theraputic Anticoag with Warfarin (when completely therapeutic, d/c heparin) VTE Mechanical Devices: Venous Foot Pump Resuscitation Status: Limited Interventions (No compressions) Limited Interventions: Intubation w [facility] Vent Attending Statement The patient was seen and examined together with Dr. العلي on 01/15/17 and I have added additional information to the note above. Kalie العلي DO Jan 15, 2017 19:09 Loida Chapman DO Jan 16, 2017 07:42
[2017-01-16 00:35] VITALS: BP 129/66; PULSE 55; RESP 18; O2SAT 93
[2017-01-16] MEDS: Heparin 5,000 Unit/mL Inj SUBQ SCH ×2 (02:44→09:08)
[2017-01-16 05:02] VITALS: BP 146/66; PULSE 53; RESP 18; O2SAT 93
[2017-01-16] MEDS: Piperacillin-Tazo 3.375 Gm Inj 3.375 GM in Dextrose 5% Minibag Plus 50 ML IV SCH (06:13)
[2017-01-16 06:55] LABS: BASOPHILS % (AUTO) 0.2 % (0-3); EOSINOPHILS % (AUTO) 2.2 % (0-5); MONOCYTES % (AUTO) 9.9 % (4-12); Mean Corpuscular Hemoglobin 30.9 pg (27.0-35.0); Mean Corpuscular Volume 94.9 fL (81-100); NEUTROPHILS % (AUTO) 76.3 % (40-74); Platelet Count 97 bil/L (150-400)
[2017-01-16 06:56] LABS: INR 2.36 ratio
--- NOTE | 2017-01-16 07:13 | NUR ---
Uneventful night Patient slept throughout the night. no c/o pain. using incentive spirometer at bedside. vitals stable.
--- NOTE | 2017-01-16 07:23 | PCM.PHAPRO ---
Progress Fever, Chills, Abdominal Pain Date Jan 13Jan 14Jan 15-Dec 19-Jan INR 2.47 1.59 1.27 1.73 2.36 INR change -0.88 -0.32 0.46 0.63 Warf Dose 10mg @0830 10 10 10 7.5 Ziyad Saunders Jan 16, 2017 07:23
[2017-01-16] MEDS ORDERED: levoFLOXacin 750 mg Tablet PO ONE (07:30)
[2017-01-16] MEDS ORDERED: KCl 40 mEq/D5W 500 mL 40 MEQ in IV Premix 1 EACH IV ONE (08:30)
[2017-01-16] MEDS: predniSONE 1 mg Tablet PO SCH (09:07)
[2017-01-16] MEDS: Multivit-Miner-Folic Acid-Iron Tablet PO SCH (09:08)
[2017-01-16 09:22] VITALS: BP 134/74; PULSE 57; RESP 18; O2SAT 98
[2017-01-16 10:19] VITALS: PULSE 59
--- NOTE | 2017-01-16 10:23 | NUR ---
Social Work: Discharge Data: Pt is on day 4 of hospitalization. EMR reviewed. Pt d/c orders are in. No d/c planning needs identified at this time. FOREIGN SERVICE OFFICER will continue to follow if needs arise. Assessment: Pt who is independent at baseline. Plan: Pt will d/c home via POV with spouse today. No d/c planning needs identified at this time. FOREIGN SERVICE OFFICER will continue to follow if needs arise. RYAN Bell
--- NOTE | 2017-01-16 11:55 | PCM.PNSURG ---
Subjective Date of Service: Jan 16, 2017 Visit Information: Reason for Visit Sepsis Surgery/Surgery Date Post-Op Day # 3 Date of Admission: Jan 12, 2017 at 09:42 Hospital Day # Subjective: Eating solid foods with no nausea or vomiting. Bowel movement this morning. Ambulating in the hallway without assistance. Pain well controlled with minimal oral analgesic. Postop General: No Complaints Gastrointestinal: Good Appetite, Tolerating Oral Feedings, No N/V, Passing Stool Pain Management: IV Push Postop Activity: Ambulating Independently Objective Vital Sign- Last 8 Hours Date Time Temp Pulse Resp B/P Pulse Ox O2 Delivery O2 Flow Rate FiO2 01/16/17 10:19 59 01/16/17 09:22 36.3 57 18 134/74 98 Room Air 01/16/17 05:02 36.4 53 18 146/66 93 Room Air Intake and Output- Last 8 Hour 01/16/17 Cumulative From/Thru 07:00 01/12/17 05:19 - 01/16/17 06:11 Intake Total 200 ml 76348 ml Output Total 1825 ml 7550 ml Balance -1625 ml 4564 ml Intake Oral 200 ml 4039 ml IV Total 7551 ml FFP 504 ml Tube Irrigant 20 ml Output Urine Total 1825 ml 7550 ml # Voids 4 # Bowel Movements 5 General: Alert, Cooperative, No Acute Distress, Anicteric Lungs: Clear to Auscultation Heart: Regular Rate/Rhythm Abdomen: Soft, Non-tender, Non-distended SURGICAL WOUND : Wound General Appearence: Steri Strips, Sutures, No Erythema, No Discharge Neuro: Normal Speech Catheters: None Result Diagram: 01/16/17 0600 01/16/17 0600 Assessment & Plan Impression Primary diagnoses: 1. Cholecystitis. POD #3, full return of bowel function, anicteric, satisfactory recovery following cholecystectomy. Other diagnoses: 1. Coronary Artery Disease 2. Atrial Fibrillation status post ablation 3. TIA 4. Aortic Stenosis status post AVR 5. Sclerosing Mesenteritis, on prednisone therapy. 6. Hx of Gastric Perforation 7. DJD Problems: Plan Discharge as per the hospitalist team VTE Prophylaxis: Sub-Q Heparin (Unfractionated), Theraputic Anticoag with Warfarin (when completely therapeutic, d/c heparin) Resuscitation Status: Limited Interventions (No compressions) Limited Interventions: Intubation w [facility] Vent Jag Lira PA-C Jan 16, 2017 11:55
--- NOTE | 2017-01-16 13:48 | PATH ---
SURGICAL PATHOLOGY Attending Physician:Praveen Hines M.D. CASE STATUS: Signed Out PATIENT NAME: JIMY BAUMANN PID: [id number] : 1945 DATE COLLECTED:01/13/2017 00:00 SPECIMEN: Gallbladder CLINICAL HISTORY: SEPSIS, CHOLECYSTITIS 1).GALLBLADDER FINAL DIAGNOSIS: 1.GALLBLADDER: ACUTE CHOLECYSTITIS. NO EVIDENCE OF MALIGNANCY. ICD10 CODE K81.0 GROSS DESCRIPTION: Received in formalin, labeled with the patient' s name and "gallbladder", is one gallbladder measuring 7.5 x 3.5 x 1.5 cm. The serosal surface is smooth and glistening. [place] are located at the cystic duct region. Opening of the gallbladder reveals a wall to measure 0.3 cm in thickness. The mucosal surface is green and velvety, covered with a thick, green, mucoid bile. No stones are identified. Manager Mechanical Maintenance sections are submitted in one cassette. ([id number]) MICRO DESCRIPTION: See diagnosis. ICD-9 CODES: CPT CODES: 1: 78187 Electronically Signed Out Lizette Elliott MD [facility] [address], [place] [address] Technical component performed at [facility], [address] [place] [address] Ave[address], [place], [address]
--- NOTE | 2017-01-16 13:48 | PCM.DIMED ---
Klaie العلي DO 01/16/17 1348: Discharge Instructions Date of Service Jan 16, 2017 Dates of Hospitalization Jan 12, 2017 at 09:42 Discharge Diagnosis Discharge Diagnosis 1. Sepsis, present on admission. resolved 2. Acute Cholecystitis, present on admission. Resolved (s/p cholecystectomy) 3. Transaminitis, Acute, present on admission, resolving 4. Hx of Mechanical Aortic Valve Replacement, present on admission, stable 5. Sclerosing Mesenteritis, present on admission, presume stable 6. Hx of CAD, present on admission, presume stable Medication Instructions -Please take the antibiotics that I prescribed for the full course ( ciprofloxacin). -Continue to take your home supplements that includes calcium and other minerals. -Do not take your usual 10 mg dose of warfarin tonight, but take 7.5 mg. I understand that you will have an appointment made before you leave the hospital. As we discussed, this is tricky when you are on antibiotics and now you are switching back to your home diet. This will need close monitoring. Diet Other (Per your GI and PCP phsician. Resume your home diet) Activity Home Health Phyical Therapy Call your provider Fever or Chills, Shortness of breath, Bleeding Patient Instructions 1) follow up with Dr. Hendrickson and INR clinic as discussed 2) I have ordered home physical therapy for you Follow-up Provider: Darell Hendrickson MD Follow-up with PCP in: 1 week Provider: Jag Lira PA-C Follow-up in: 2 weeks Loida Chapman DO 01/16/17 1420: Discharge Instructions Medication Instructions DO NOT TAKE 7.5MG OF WARFARIN. TAKE 4MG DAILY AND FOLLOW UP WITH THE INR CLINIC WHO WILL THEN MAKE FURTHER ADJUSTMENTS TO YOUR MEDICATIONS DAILY. Please remember that this antibiotic can cause your warfin to work better than expected and can cause your INR to increase more than usual so it is very important to follow up daily with the coumadin clinic while on this medication. Attending's Statement The patient was seen and examined together with Dr. العلي on 01/16/17 and I have added additional information to the note above. Kalie العلي DO Jan 16, 2017 13:48 Loida Chapman DO Jan 16, 2017 14:20
[2017-01-16] MEDS ORDERED: CIPR750T4 PO (13:51)
[2017-01-16] MEDS ORDERED: Warfarin 5 MG, Warfarin 2.5 MG PO ONE ×2 (17:00)
--- NOTE | 2017-01-16 17:35 | NUR ---
Discharge Pt d/c home as ordered. Removed IV, catheter intact, minimal bleeding. Provided pt and with d/c paperwork and instructions, including prescriptions and carenotes. Pt decided to stay later to eat dinner. Currently dressing self in room. Will let staff know when he is ready to leave.
--- NOTE | 2017-01-16 19:53 | PCM.DC.MED ---
Discharge Summary Date of Service Jan 16, 2017 Dates of Hospitalization Date of Hospital Admission Jan 12, 2017 at 09:42 Date of Discharge: Jan 16, 2017 Providers: Admitting Physician: Zak Arango MD Primary Care Physician: Darell Hendrickson MD Attending Physician: Zak Arango MD Diagnosis at Time of Discharge Diagnosis at Time of Discharge 1. Sepsis, present on admission. resolved 2. Acute Cholecystitis, present on admission. Resolved (s/p cholecystectomy) 3. Transaminitis, Acute, present on admission, resolving 4. Hx of Mechanical Aortic Valve Replacement, present on admission, stable 5. Sclerosing Mesenteritis, present on admission, presume stable 6. Hx of CAD, present on admission, presume stable Procedures XRay, CTs & MRIs 01/13/17 X-RAY [facility] BILIARY DUCTS ([id number]) INDICATIONS: MARIALUISA TECHNIQUE: Fluoroscopic spot films were acquired by the gastroenterology service during ERCP procedure. COMPARISON: None. FINDINGS: 4 C-arm films are presented these show cannulation of the cystic duct and contrast flowing into a nondistended common hepatic central biliary radicles and the common bile duct with spillage into the duodenum. IMPRESSION: Normal intraoperative cholangiogram study. Dictated by: Sukhwinder Chávez M.D. on 01/13/2017 at 9:19 Approved by: Sukhwinder Chávez M.D. on 01/13/2017 at 9:20 01/12/17 US ABDOMEN, LIMITED ([id number]) INDICATIONS: Elevated Liver Enzymes; Fever TECHNIQUE: Real-time focused scanning was performed of the abdomen, with image documentation. COMPARISON: [facility], CT, CT ABD PELVIS W CON, 01/12/2017, 11:24. FINDINGS: Gallbladder wall is abnormally thickened measuring up to 5.4 mm. There is what appears to be a small amount of echogenic sludge in the dependent margin of the gallbladder lumen. The nearby common duct is normal in caliber at 2 mm. IMPRESSION: Abnormal gallbladder wall thickening at 5.4 mm. Echogenic sludge within the gallbladder lumen. Dictated by: Harjeet Villanueva M.D. on 01/12/2017 at 13:46 Approved by: Harjeet Villanueva M.D. on 01/12/2017 at 13:47 01/12/17 CT ABDOMEN AND PELVIS WITH CONTRAST ([id number]) INDICATIONS: Abdominal Pain, Fever TECHNIQUE: After the administration of oral and intravenous contrast, 5 mm thick sections acquired from the diaphragms to the symphysis. 5 mm thick coronal and sagittal reformats were performed. For radiation dose reduction, the following was used : automated exposure control, adjustment of mA and/or kV according to patient size. COMPARISON: None. FINDINGS: Image quality: Excellent. ABDOMEN: Lung bases: Lung bases are clear. Heart size is normal. Solid organs: Liver and spleen are normal in size and enhancement. Gallbladder appears abnormal with wall thickening best seen at the fundus measuring up to 1.7 cm. A component of this may be free fluid immediately adjacent, and ultrasound is scheduled. Biliary system is non-dilated. Pancreas enhances normally. No adrenal nodules. Kidneys are normal in size and enhancement, without hydronephrosis. Peritoneum and bowel: Stomach, small bowel, and colon loops are normal in caliber and wall thickness. No free fluid or air. There is colonic obstipation bilaterally. This extends into the pelvis. Nodes and vessels: No retroperitoneal or mesenteric adenopathy. Aorta and inferior vena cava are normal in caliber. Miscellaneous: No ventral hernias. PELVIS: Genitourinary: Bladder wall thickness is normal. Miscellaneous: No inguinal hernias or adenopathy. Bones: No suspicious bony lesions. No vertebral body compression fractures. IMPRESSION: Abnormal gallbladder wall thickening, measuring up to 1.7 cm In thickness at the anterior gallbladder fundus area, but please note that ultrasound provides more accurate assessment and can discriminate between gallbladder wall thickening and superimposed pericolicystic free fluid. Please correlate for signs and symptoms of acute cholecystitis. Gallbladder ultrasound is scheduled. Dictated by: Harjeet Villanueva M.D. on 01/12/2017 at 11:54 Approved by: Harjeet Villanueva M.D. on 01/12/2017 at 11:56 . Brief History From history and physical by Dr. Arango dated 01/12/17: Patient is a 71 year old male with a past medical history of Coronary Artery Disease, Aortic Stenosis, Sclerosing Mesenteritis, Atrial Fibrillation, TIA, and hx of Gastric Perforation. He presents to the ER at [facility] complaining of fever, chills, and abdominal pain. Pt states his symptoms began at approximately 3:30 AM this morning, when he woke up with significant chills and fever. He states he has also been having some abdominal pain as well as nausea and vomiting last night. Pt states the pain seems to be generalized. He denies any radiation of this pain. At present, pt states the pain has subsided. In the ER pt was found to have a significantly elevated temperature. A source for his fever was not found in the ER and he was admitted for further evaluation to hospital. No other complaints or concerns at this time. Hospital Course Mr. Cook presented to the emergency department on 01/12/17 after experiencing rather sudden onset of chills, abdominal pain, nausea and vomiting. Abdominal ultra sound showed an abnormal gallbladder with wall thickening at 5.4 mm and sludge within lumen. Initially it was decided to put off the surgery for a week until his came back from [place] and he was to be discharged. However , the blood cultures turned positive for E. coli. At that point, his INR was reversed and surgery was performed the next morning. Post-op he did well. He needed to stay in the hospital to become therapeutic on warfarin again. He was placed on antibiotics for the mann-sensitive E.coli and discharged on PO ciprofloxacin. Patient needs close follow up in INR clinic and was attempting to get an INR clinic time for the day after discharge. The effect of the antibiotic on his INR was discussed with him by both myself and Dr. Chapman and he stated understanding. His dose was cut to 4mg on day of discharge then he is to f/u with INR clinic and follow their directions. He is to follow up with Lesly Alejandre in general surgery 2 weeks after the surgery. [facility] is supposed to call patient with that appointment. Close follow up with PCP for INR monitoring. 1. Sepsis, present on admission. resolved - Secondary to E. Coli bacteremia from infected gallbladder - Pt is now status post cholecystectomy - Had Zosyn (and Vancomycin until MRSA negative) - Last blood cultures were negative x 48 hours - Procalcitonin reduced by half every day and close to 1 on discharge - monitored by telemetry 2. Acute Cholecystitis secondary to E. coli infection, present on admission. Resolved - Pt is status post laparoscopic cholecystectomy - Patient tolerated well 3. Transaminitis, Acute, present on admission, resolving - Secondary to #2 likely - trending downward after cholecystectomy 4. Hx of Mechanical Aortic Valve Replacement, present on admission, stable - Pts anticoagulation was reversed for surgery then restated. Therapeutic on discharge - Pharmacy managed Warfarin 5. Sclerosing Mesenteritis, present on admission, presume stable - Continued low-dose prednisone 6. Hx of CAD, present on admission, presume stable - Continued pts home statin therapy, as I do not feel this contributed to his acute transaminitis (see #3) Exam Vital Signs (Last) Date Time Temp Pulse Resp B/P Pulse Ox O2 Delivery O2 Flow Rate FiO2 01/16/17 10:19 59 01/16/17 09:22 36.3 18 134/74 98 Room Air 01/13/17 10:11 2 Exam GENERAL: NAD, Pt ambulating in [place] and then in the room HEENT: PERRL, EOMI, MM moist CARDIAC: RRR, No R/G, mechanical valve sound PULM: CTAB ABD: Soft, Appropriately tender to palpation status post surgery, ND, Positive BS EXT: pitting edema B/L feet SKIN: Surgical wounds have steri strips on them and they are clean, dry, intact. Well-healing without edema, inappropriate erythema or discharge. NEURO: Alert and oriented x3; Following all commands; Normal speech; CN II-XII are grossly intact PSYCH: Normal mood and affect Test 01/12/17 04:50 01/12/17 06:58 01/12/17 13:35 01/12/17 16:40 Magnesium Level 1.6mg/dL (1.6-2.6) Troponin T 0.010ug/L (0.0-0.011) Pro-B-Type Natriuretic Peptide 370.0pg/mL (0-376) Lipase 28U/L (13-60) Urine Color Yellow (YELLOW) Urine Appearance Clear (CLEAR,HAZY) Urine pH 7.5 (5.0-8.0) Urine Specific [place] 1.012 (1.003-1.035) Urine Protein Negativemg/dL (NEG,TRACE) Urine Glucose (UA) Negativemg/dL (NEGATIVE) Urine Ketones Negativemg/dL (NEGATIVE) Urine Occult Blood Trace (NEGATIVE) Urine Nitrite Negative (NEGATIVE) Urine Bilirubin Negative (NEGATIVE) Urine Urobilinogen Normalmg/dL (NORMAL) Urine Leukocyte Esterase Negative (NEGATIVE) Urine RBC 3-10/hpf (0-2) Urine WBC 0-5/hpf (0-5) Urine Epithelial Cells Few/hpf (NONE-MOD) Urine Crystals None seen (NONE SEEN) Urine Bacteria None/hpf (NONE-FEW) Urine Hyaline Casts None/lpf (NONE) Urine Granular Casts None seen (NONE SEEN) Urine Waxy Casts None seen (NONE SEEN) Urine Red Blood Cell Casts None seen (NONE SEEN) Urine White Blood Cell Casts None seen (NONE SEEN) Urine Mucus None seen (None Seen) Urine Trichomonas None seen (NONE SEEN) Urine Yeast None (NONE SEEN) Urinalysis Comment None Urine Culture Reflexed Not indicated Hepatitis A IgM Antibody Negative (Negative) Hepatitis B Surface Antigen Negative (Negative) Hepatitis B Core IgM Antibody Negative (Negative) Hepatitis C Antibody <0.1s/co ratio (0.0-0.9) Hepatitis C Comment Comment (.) Activated Partial Thromboplast Time 33.4sec (22.8-33.0) Test 01/13/17 00:55 01/13/17 02:51 01/13/17 22:25 01/16/17 06:00 Lactic Acid Level 1.8mmol/L (0.4-2.0) Erythrocyte Sedimentation Rate 9mm/hr (0-30) C-Reactive Protein 7.3mg/dL (0.0-0.5) Vancomycin Level Trough 11.0mcg/mL White Blood Count 5.9th/mm3 (3.8-10.1) Red Blood Count 3.50mil/mm3 (4.40-5.80) Hemoglobin 10.8g/dL (13.8-17.2) Hematocrit 33.2% (41.0-50.0) Mean Corpuscular Volume 94.9fL (81-100) Mean Corpuscular Hemoglobin 30.9pg (27.0-35.0) Mean Corpuscular Hemoglobin Concent 32.5% (32.0-37.0) Red Cell Distribution Width 13.1% (12.3-15.4) Platelet Count 97bil/L (150-400) Neutrophils (%) (Auto) 76.3% (40-74) Lymphocytes (%) (Auto) 10.7% (14-46) Monocytes (%) (Auto) 9.9% (4-12) Eosinophils (%) (Auto) 2.2% (0-5) Basophils (%) (Auto) 0.2% (0-3) Prothrombin Time 25.7sec (8.1-12.5) Prothromb Time International Ratio 2.36ratio Sodium Level 140mEq/L (134-144) Potassium Level 3.8mEq/L (3.5-5.2) Chloride Level 107mEq/L (97-108) Carbon Dioxide Level 25mmol/L (18-29) Blood Urea Nitrogen 13mg/dL (8-27) Creatinine 0.81mg/dL (0.76-1.27) Estimat Glomerular Filtration Rate 99mL/min (>59) Glucose Level 79mg/dL (60-99) Calcium Level 7.4mg/dL (8.5-10.1) Total Bilirubin 0.8mg/dL (0.0-1.2) Aspartate Amino Transf (AST/SGOT) 50U/L (0-50) Alanine Aminotransferase (ALT/SGPT) 109U/L (0-44) Alkaline Phosphatase 67U/L (25-160) Total Protein 4.4g/dL (6.4-8.4) Albumin 2.9g/dL (3.4-5.0) Procalcitonin 1.28ng/mL (0.00-0.08) Microbiology Results Microbiology 01/14/17 Blood Culture, Received, no growth after 24 hours 01/12/17 Blood culture - E. coli 3/4 bottles Influenza negative 01/12/17 Adenovirus DNA (PCR) - Final, Complete Not Detected 01/12/17 Coronavirus 229E PCR - Final, Complete Not Detected 01/12/17 Coronavirus HKU1 PCR - Final, Complete Not Detected 01/12/17 Coronavirus NL63 PCR - Final, Complete Not Detected 01/12/17 Coronavirus OC43 PCR - Final, Complete Not Detected 01/12/17 Influenza Type A (PCR) - Final, Complete Not Detected 01/12/17 Influenza Type B (PCR) - Final, Complete Not Detected 01/12/17 Human Metapneumovirus (PCR) (CHRISTINE) - Final, Complete Not Detected 01/12/17 Rhinovirus (PCR)(CHRISTINE) - Final, Complete Not Detected 01/12/17 Parainfluenza Virus Type 1 (PCR) - Final, Complete Not Detected 01/12/17 Parainfluenza Virus Type 2 (PCR) - Final, Complete Not Detected 01/12/17 Parainfluenza Virus Type 3 (PCR) - Final, Complete Not Detected 01/12/17 Parainfluenza Virus Type 4 (NAAT) - Final, Complete Not Detected 01/12/17 Respiratory Syncytial Virus (PCR)HI - Final, Complete Not Detected 01/12/17 Chlamydia pneumoniae (PCR) - Final, Complete Not Detected 01/12/17 Mycoplasma pneumoniae DNA Detection - Final, Complete Discharge Medications Discharge Medications Alendronate Sodium (Fosamax) 70 Mg Tablet 70 MG PO WEEKLY (Reported) Atorvastatin (Lipitor) 20 Mg Tablet 20 MG PO HS (Reported) Cholecalciferol (Vitamin D3) (Vitamin D3) 1,000 Unit Tab.chew 2,000 UNIT PO BID (Reported) Ciprofloxacin (Ciprofloxacin) 750 Mg Tablet 750 MG PO BID Prescribed by: ULISES RUANO DO Cyanocobalamin (Vitamin B12) 500 Mcg Tablet 1,000 MCG PO DAILY (Reported) Ferrous Sulfate (Iron) 325 Mg Tablet 324 MG PO BID (Reported) Multivitamin (Multivitamins) 1 Each Capsule 1 EACH PO DAILY (Reported) PredniSONE (PredniSONE) 1 Mg Tab 2 MG PO DAILY (Reported) Warfarin Sodium (Warfarin Sodium) 10 Mg Tablet 12.5 MG PO DAILY (Reported) 12.5 MG ON SAT AND SATURDAY Warfarin Sodium (Warfarin Sodium) 10 Mg Tablet 10 MG PO DAILY (Reported) ON MON, TU, THURS, SAT, SUN As needed Acetaminophen (Acetaminophen) 325 Mg Tablet 1,000 MG PO QID PRN PRN For Pain ( Reported) Ascorbic Acid (Vitamin C) 500 Mg Capsule.er 500 MG PO BID PRN PRN supplement ( Reported) Folic Acid (Folic Acid) 0.4 Mg Tablet 0.4 MG PO DAILY PRN PRN SUPPLEMENT ( Reported) Additional med instructions DO NOT TAKE 7.5MG OF WARFARIN. TAKE 4MG DAILY AND FOLLOW UP WITH THE INR CLINIC WHO WILL THEN MAKE FURTHER ADJUSTMENTS TO YOUR MEDICATIONS DAILY. Please remember that this antibiotic can cause your warfin to work better than expected and can cause your INR to increase more than usual so it is very important to follow up daily with the coumadin clinic while on this medication. Followup Plan Disposition: Home with family Discharge Diet: Other (Per your GI and PCP phsician. Resume your home diet) Discharge Activity: Home Health Phyical Therapy Patient Instructions 1) follow up with Dr. Hendrickson and INR clinic as discussed 2) I have ordered home physical therapy for you Follow-up Provider: Darell Hendrickson MD Follow-up with PCP in: 1 week Provider: Jag Lira PA-C Follow-up in: 2 weeks Attending Statement The patient was seen and examined together with Dr. Ruano on 01/16/17 and I agree with the history, exam and plan as outlined in the note above. copies to: Darell Hendrickson MD, Janice M DO Jan 16, 2017 19:52 Loida Chapman DO Jan 28, 2017 17:01
== END 2017-01-16 17:43 | disposition home or self-care (01) | DRG 854 ==
LOC: SED 04:34 → OBSVTOIN 09:42 → MPC 09:42 → PCC 20:46 → MPC 01-13 13:28
PROVIDERS: ADMIT Family Medicine; ATTEND Family Medicine
PROC: 30233K1 Transfusion of Nonautologous Frozen Plasma into Peripheral Vein, Percutaneous Approach (ICD-10-PCS; 2017-01-12)
PROC: BF101ZZ Fluoroscopy of Bile Ducts using Low Osmolar Contrast (ICD-10-PCS; 2017-01-13)
PROC: 0FT44ZZ Resection of Gallbladder, Percutaneous Endoscopic Approach (ICD-10-PCS; principal; 2017-01-13 07:00)
DX: A41.51 Sepsis due to Escherichia coli [E. coli] (principal); K81.0 Acute cholecystitis; K65.4 Sclerosing mesenteritis; Z95.2 Presence of prosthetic heart valve; Z79.01 Long term (current) use of anticoagulants; Z79.52 Long term (current) use of systemic steroids; I25.10 Atherosclerotic heart disease of native coronary artery without angina pectoris; R74.0 Nonspecific elevation of levels of transaminase and lactic acid dehydrogenase [LDH]; Z86.73 Personal history of transient ischemic attack (TIA), and cerebral infarction without residual deficits; I48.91 Unspecified atrial fibrillation